=== PATIENT | male | born 1985 | race Caucasian/White ===

== ENCOUNTER 2016-11-24 22:09 | Emergency (ER) | payer OTHER ==
[~2016-11-24 22:09] MED LIST: BACT800T5 PO; BACTOIN EACH NARE; HIBI4LIQ TOPICAL; RIFA300C2 PO
[2016-11-24 22:19] VITALS: BP 138/97; PULSE 100; RESP 18; TEMP 98.1; O2SAT 100
[2016-11-24] MEDS ORDERED: BACT800T5 PO (22:42)
[2016-11-24] MEDS ORDERED: CLOT1CRE8 TOPICAL (22:53)
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
== END 2016-11-24 23:02 | disposition home or self-care (01) ==
LOC: PHED 22:09 → PHEFT 23:02
DX: M95.11 Cauliflower ear, right ear (principal); B36.9 Superficial mycosis, unspecified; H62.42 Otitis externa in other diseases classified elsewhere, left ear; F17.200 Nicotine dependence, unspecified, uncomplicated; Z86.14 Personal history of Methicillin resistant Staphylococcus aureus infection; T54.91XA Toxic effect of unspecified corrosive substance, accidental (unintentional), initial encounter; Y92.9 Unspecified place or not applicable
CPT/HCPCS: 10160; 87070; 87205

== ENCOUNTER 2016-11-29 20:02 | Emergency (ER) | payer SELFPAY ==
[~2016-11-29] VITALS: Ht 185.4 cm; Wt 80.0 kg
[~2016-11-29 20:02] MED LIST changes: -BACTOIN EACH NARE; +CLOT1CRE8 TOPICAL; -HIBI4LIQ TOPICAL; -RIFA300C2 PO
[2016-11-29 20:05] VITALS: BP 134/82; PULSE 90; RESP 16; TEMP 97.6; O2SAT 100
[2016-11-29] MEDS ORDERED: HYDR-3533 PO (22:40)
--- NOTE | 2016-11-29 22:41 | PD ---
HPI Chief Complaint: ENT Complaint Time Seen by Provider: 22:15 Travel History International Travel<30 days: No Contact w/Intl Traveler<30days: No Traveled to known affect area: No History of Present Illness HPI Patient is a 30-year-old male presenting to emergency for evaluation of right ear swelling. She was seen and evaluated 5 days ago, and needle aspiration was performed and he was placed on antibiotics. He reports compliance with the antibiotics. He reports increased swelling over the last 24 hours. He denies any injury or trauma to the right ear however he does work with trees. Patient denies any fevers, chills, nausea, vomiting. He states that he was dizzy today while walking denies any chest pain or shortness of breath. PFSH Past Medical History Arthritis: No Asthma: No Heart Rhythm Problems: No Cancer: No Cardiovascular Problems: Yes High Cholesterol: No Chest Pain: No Congestive Heart Failure: No COPD: No Cerebrovascular Accident: No Diminished Hearing: No Endocrine: No Genitourinary: No Immune Disorder: No Neurologic: No Psychiatric: No Reproductive: No Respiratory: No Integumentary: Yes (MRSA , FOLICULITIS ) Immunizations Current: No Migraines: No Seizures: No Sleep Apnea: No Past Surgical History Abdominal Surgery: No Cardiac Surgery: No Ear Surgery: No Endocrine Surgery: No Eye Surgery: No Genitourinary Surgery: No Gynecologic Surgery: No Oral Surgery: Yes (FX ARM) Thoracic Surgery: No Tonsillectomy: Yes Social History Alcohol Use: No Tobacco Use: Yes (vapor smokes, 1-2 cig per day ) Substance Use: No Allergies-Medications (Allergen,Severity, Reaction): Coded Allergies: Bee Sting (Verified Allergy, Intermediate, 11/29/16) *MDRO Multi-Drug Resistant Organism (Verified Adverse Reaction, Unknown, ) MRSA (lip-04/17/16) Reported Meds & Prescriptions Reported Meds & Active Scripts Active Lortab (Hydrocodone-Acetaminophen) 5-325 Mg Tab 1 Tab PO Q6H PRN Clotrimazole AF Topical (Clotrimazole) 1% Cream 1 Applic TOPICAL BID Bactrim DS (Sulfamethoxazole-Trimethoprim) 800-160 Mg Tab 1 Tab PO BID Review of Systems Except as stated in HPI: all other systems reviewed are Neg Skin: Positive Lumps, Positive Change in Pigmentation Physical Exam Narrative GENERAL: Well-nourished, well-developed patient. SKIN: Focused skin assessment warm/dry. HEAD: Normocephalic. EYES: No scleral icterus. No injection or drainage. EARS: Left pinnae and external canals appear within normal limits. Bilateral tympanic membranes without erythema, dullness or perforation. Right pinnae is significantly edematous and mildly erythematous, fluctuant, tender. NECK: Supple, trachea midline. No JVD or lymphadenopathy. CARDIOVASCULAR: Regular rate and rhythm without murmurs, gallops, or rubs. RESPIRATORY: Breath sounds equal bilaterally. No accessory muscle use. GASTROINTESTINAL: Abdomen soft, non-tender, nondistended. MUSCULOSKELETAL: No cyanosis, or edema. BACK: Nontender without obvious deformity. No CVA tenderness. Data Data Last Documented VS Vital Signs Date Time Temp Pulse Resp B/P Pulse Ox O2 Delivery O2 Flow Rate FiO2 11/29/16 20:05 97.6 90 16 134/82 100 Room Air MDM Medical Decision Making Medical Screen Exam Complete: Yes Emergency Medical Condition: Yes Interpretation(s) Vital Signs Date Time Temp Pulse Resp B/P Pulse Ox O2 Delivery O2 Flow Rate FiO2 11/29/16 20:05 97.6 90 16 134/82 100 Room Air Differential Diagnosis Traumatic hematoma versus cauliflower ear versus abscess versus cellulitis versus other Narrative Course Patient is a 30-year-old male presenting for reevaluation to right ear pinna edema. Please see procedure report for I&D. Bolster dressing was applied by my attending physician. Mother was educated on how to apply dressing should it come off. They were advised to leave dressing on for 5 days. Patient will continue antibiotics as previously prescribed. He is encouraged follow-up with his primary care provider. He was advised to return to emergency department for any new or worsening symptoms. Patient mother verbalized understanding of these instructions. Patient is stable for discharge. Procedures Procedure Narrative After the risks and benefits were discussed the following procedure was performed: INCISION AND DRAINAGE OF ABSCESS: The area was prepped and was sterilely draped. A subcutaneous wheal of 1 % Xylocaine with a total number 1 mL was used to anesthetize the area. The area was properly anesthetized. A number 11 scalpel was used to make a 0.5 -cm incision across the area of the abscess. Cultures were obtained. The abscess was drained an irrigated with normal saline. Sterile bolster dressing applied. Patient advised to have packing removed in two days. Diagnosis Primary Impression: Cauliflower ear, right ear Referrals: Primary Care Physician 3 days Patient Instructions: General Instructions Departure Forms: Tests/Procedures, Work Release Enter return to work date: Dec 04, 2016 Additional Instructions: Keep dressing on ear for 5 days Continue previously prescribed antibiotics Follow-up with your primary doctor in 2-3 days Return to emergency department for any new or worsening symptoms Drive or operate machinery while taking narcotic pain medication Med/Other Pt SpecificInfo: Prescription(s) given Scripts Hydrocodone-Acetaminophen (Lortab)5-325 Mg Tab1 Tab PO Q6H PRN (PAIN) #10 TAB Ref 0 Prov:Lalo Carlson MD 11/29/16 Disposition: 01 DISCHARGE HOME Condition: Stable Valerie Powell Nov 29, 2016 22:40
== END 2016-11-29 22:52 | disposition home or self-care (01) ==
LOC: NEPD 20:02
DX: M95.11 Cauliflower ear, right ear (principal); H60.01 Abscess of right external ear; Z72.0 Tobacco use; Z86.79 Personal history of other diseases of the circulatory system; Z87.2 Personal history of diseases of the skin and subcutaneous tissue; Z86.14 Personal history of Methicillin resistant Staphylococcus aureus infection
CPT/HCPCS: 10061

== ENCOUNTER 2017-07-31 10:52 | Inpatient (IN) | payer OTHER ==
[~2017-07-31] VITALS: Ht 188 cm; Wt 77.9 kg
[~2017-07-31 10:52] MED LIST changes: +HYDR-3533 PO
[2017-07-31 10:55] VITALS: BP 134/76; PULSE 79; RESP 18; TEMP 98.2; O2SAT 99
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
[2017-07-31 11:35] LABS: AUTOMATED NEUTROPHIL # 7.3 TH/MM3 (1.8-7.7); BASOPHIL % 0.4 % (0.0-2.0); EOSINOPHIL # 0.2 TH/MM3 (0-0.4); EOSINOPHIL % 2.3 % (0.0-4.0); HEMATOCRIT 43.4 % (39.0-51.0); HEMOGLOBIN 15.1 GM/DL (13.0-17.0); LYMPH % 17.2 % (9.0-44.0); LYMPHOCYTE # 1.7 TH/MM3 (1.0-4.8); MEAN CORPUSCULAR HEMOGLOBIN 28.1 PG (27.0-34.0); MEAN CORPUSCULAR HGB CONC 34.7 % (32.0-36.0); MEAN PLATELET VOLUME 8.7 FL (7.0-11.0); MONOCYTE # 0.8 TH/MM3 (0-0.9); NEUT % 72.1 % (16.0-70.0); PLATELET COUNT 238 TH/MM3 (150-450); RED BLOOD COUNT 5.36 MIL/MM3 (4.50-5.90); RED CELL DISTRIBUTION WIDTH 14.6 % (11.6-17.2); WHITE BLOOD COUNT 10.2 TH/MM3 (4.0-11.0)
[2017-07-31 11:49] LABS: BICARBONATE 28.5 MEQ/L (21.0-32.0); BLOOD UREA NITROGEN 17 MG/DL (7-18); CALCIUM 9.7 MG/DL (8.5-10.1); CHLORIDE 105 MEQ/L (98-107); CREATININE 1.03 MG/DL (0.60-1.30); GLOMERULAR FILTRATION RATE 85 ML/MIN (>89); GLUCOSE,RANDOM 93 MG/DL (74-106); SODIUM (NA) 138 MEQ/L (136-145)
[2017-07-31 15:58] VITALS: BP 109/59; PULSE 64; RESP 16; TEMP 97.5; O2SAT 100
[2017-07-31 17:20] VITALS: BP 125/68; PULSE 64; RESP 20
[2017-07-31 22:53] VITALS: BP 113/64; PULSE 60; RESP 18; TEMP 98.6; O2SAT 95
[2017-08-01 03:11] VITALS: BP 121/67; PULSE 63; RESP 18; TEMP 99; O2SAT 100
[2017-08-01 06:56] VITALS: BP 97/56; PULSE 68; RESP 16; TEMP 98.3; O2SAT 100
[2017-08-01] MEDS ORDERED: HALOPERIDOL LACTATE 5 MG/ML AMP IM PRN (07:15)
[2017-08-01] MEDS ORDERED: diphenhydrAMINE HCL 50 MG/ML VIAL IM PRN (07:15)
[2017-08-01] MEDS ORDERED: MAGNESIUM HYDROXIDE SUSP 30 ML CUP PO PRN (07:15)
[2017-08-01] MEDS ORDERED: LORazepam 2 MG/ML VIAL IM PRN (07:15)
[2017-08-01] MEDS ORDERED: ALUMINUM/MAGNESIUM/SIMETH 30 ML CUP PO PRN (07:15)
[2017-08-01] MEDS ORDERED: LORazepam 1 MG TAB PO PRN (07:15)
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
[2017-08-01] MEDS: HALOPERIDOL 5 MG TAB PO SCH ×2 (09:00→20:53)
[2017-08-01 14:00] VITALS: BP 136/52; PULSE 55; RESP 18; TEMP 98.3; O2SAT 98
[2017-08-01 16:30] VITALS: BP 108/62; PULSE 57; RESP 17; TEMP 98.2; O2SAT 99
[2017-08-01] MEDS: diphenhydrAMINE HCL 50 MG CAP PO PRN (21:15)
[2017-08-02 06:16] VITALS: BP 111/61; PULSE 92; RESP 16; TEMP 98.6; O2SAT 97
[2017-08-02 07:38] LABS: ALBUMIN 3.4 GM/DL (3.4-5.0); ALT (GPT) 26 U/L (12-78); AST (GOT) 18 U/L (15-37); BICARBONATE 27.1 MEQ/L (21.0-32.0); BLOOD UREA NITROGEN 10 MG/DL (7-18); CALCIUM 9.1 MG/DL (8.5-10.1); CHLORIDE 104 MEQ/L (98-107); CHOLESTEROL 149 MG/DL (120-200); CREATININE 0.73 MG/DL (0.60-1.30); GLOMERULAR FILTRATION RATE 127 ML/MIN (>89); GLUCOSE,RANDOM 87 MG/DL (74-106); SODIUM (NA) 136 MEQ/L (136-145)
[2017-08-02 07:41] LABS: ALKALINE PHOSPHATASE 76 U/L (45-117); CHOLESTEROL/ HDL RATIO 2.21 RATIO; HDL CHOLESTEROL 67.4 MG/DL (40.0-60.0); LDL CHOLESTEROL 69 MG/DL (0-99); TOTAL BILIRUBIN ADULT 0.2 MG/DL (0.2-1.0); TOTAL PROTEIN 7.1 GM/DL (6.4-8.2); TRIGLYCERIDES 62 MG/DL (42-150)
[2017-08-02] MEDS: HALOPERIDOL 5 MG TAB PO SCH ×2 (09:00→20:44)
[2017-08-02] MEDS ORDERED: PNEUMOCOCCAL POLYVALENT INJ 25 MCG/0.5 ML SYR IM ONE (10:00)
[2017-08-02] MEDS ORDERED: INFLUENZA VIRUS VACCINE (QUADRIVALENT) 0.5 ML SYR IM ONE (10:00)
--- NOTE | 2017-08-02 12:14 | HHI.PYPN ---
Subjective Chief Complaint: Psychosis Remarks Patient seen and examined with nurse. Chart reviewed. Case discussed with nursing staff. Nurse has noted pustular lesions on neck and back, requesting hospitalist consult. On my examination today, patient remains delusional regarding vigilantes being after him. He continues to believe that his sister is in league with these vigilantes. He does not believe they are encroaching on the inpatient unit. He denies any SI or HI but remains unreliable to contract for safety. He remains internally stimulated. Denies any side effects from medications besides some mild tiredness. No physical complaints. Review of Systems ROS Limitations: Psychotic, Poor Historian Except as stated in HPI: all other systems reviewed are Neg Mental Status Examination Appearance: Disheveled Consciousness: Alert Orientation: Person, Place (at least) Motor Activity: Other (no hand tremor, no cogwheeling, no dystonia, no other motor abnormalities noted.) Speech: Unremarkable Language: Adequate Fund of Knowledge: Adequate Attention and Concentration: Adequate Memory: Unremarkable Mood: Irritable, Other (dysphoric) Affect: Other (restricted) Thought Process & Associations: Linear (within delusional system) Thought Content: Delusional Hallucination Type: Other (internally stimulated) Delusion Type: Paranoid Suicidal Ideation: No Suicidal Plan: No Suicidal Intention: No Homicidal Ideation: No (unreliable to contract for safety) Homicidal Plan: No Homicidal Intention: No Insight: Poor Judgment: Poor Mental Status Exam Remarks No signs of withdrawal noted. I do note several pustular lesions on lateral aspects of neck and on back. Results Labs Test 08/02/17 07:00 Blood Urea Nitrogen 10 MG/DL Creatinine 0.73 MG/DL Random Glucose 87 MG/DL Total Protein 7.1 GM/DL Albumin 3.4 GM/DL Calcium Level 9.1 MG/DL Alkaline Phosphatase 76 U/L Aspartate Amino Transf (AST/SGOT) 18 U/L Alanine Aminotransferase (ALT/SGPT) 26 U/L Total Bilirubin 0.2 MG/DL Sodium Level 136 MEQ/L Potassium Level 4.3 MEQ/L Chloride Level 104 MEQ/L Carbon Dioxide Level 27.1 MEQ/L Anion Gap 5 MEQ/L Estimat Glomerular Filtration Rate 127 ML/MIN Triglycerides Level 62 MG/DL Cholesterol Level 149 MG/DL LDL Cholesterol 69 MG/DL HDL Cholesterol 67.4 MG/DL Cholesterol/HDL Ratio 2.21 RATIO Labs reviewed. Vitals/IOs Vital Signs Date Time Temp Pulse Resp B/P (MAP) Pulse Ox O2 Delivery O2 Flow Rate FiO2 08/02/17 06:16 98.6 92 16 111/61 (78) 97 08/01/17 06:56 Room Air Assessment & Plan Problem List: (1) Other psychotic disorder not due to a substance or known physiological condition ICD Codes: F28 - Other psychotic disorder not due to a substance or known physiological condition (2) Polysubstance abuse ICD Codes: F19.10 - Other psychoactive substance abuse, uncomplicated Assessment & Plan Titrate Haldol to 7.5 mg twice daily with IM backup to target psychotic symptoms. Continue to monitor on the high acuity unit. Hospitalist consultation. Continue other medications and care as ordered. Justification for Cont. Inpt. Impairment in reality construction. Medication changes. Risk for decompensation in less restrictive environment. Discharge Planning Pending psychiatric stabilization Request HC Surrog/Guard Advoc?: Yes Anthony Diaz MD Aug 02, 2017 12:14
--- NOTE | 2017-08-02 12:24 | EKG ---
Date Performed: 08/01/2017 Time Performed: 12:57:15 PTAGE: 31 years EKG: Sinus rhythm BORDERLINE RIGHT AXIS DEVIATION INCOMPLETE RIGHT BUNDLE BRANCH BLOCK EARLY REPOLARIZATION TALL T-WAV ES, SUGGESTS HYPERKALEMIA ABNORMAL ECG NO PREVIOUS TRACING 08/01/2017 1257 DOCTOR: Siddharth Morris Interpretating Date/Time 08/02/2017 12:21:28
[2017-08-02] MEDS ORDERED: PILL SPLITTER OTHER PRN (12:30)
[2017-08-02] MEDS ORDERED: HALOPERIDOL LACTATE 5 MG/ML AMP IM PRN (13:15)
--- NOTE | 2017-08-02 13:20 | PD.CONS ---
HPI Service [facility] Hospitalists Consult Requested By Primary Care Physician No Primary Care Physician Diagnoses: History of Present Illness History from patient, review of medical records, and psychiatry note/ER notes. Patient is admitted to psychiatry inpatient service. Medical team was consulted for "huge pustular lesions on neck and back" Patient at the time of my exam is awake and alert. Patient denies any recent fevers/nausea/vomiting/diarrhea/urinary burning or pain on urination. Denies any hematemesis/hematochezia/melena/hematuria. Patient has noted multiple skin lesions on his face, neck, and lower back. He reports that these lesions have been there for at least a month if not longer. He reports of prior history of MRSA. He denies any shaving or bites. Denies being diabetic. Reports prior history of acne as a teenager but never had lesions on his back or neck area. Denies any sensitivity to soap or bed sheets. Denies any fever. Patient is noted to have some mild whitish discharge from these lesions but he stated he did not have any lani pustular discharge previously. On review of medical records, patient has had prior history of facial abscesses with MRSA He does not follow up with any PCP. Does not take any prophylactic medications for disseminated MRSA. Past Family Social History Allergies: Coded Allergies: bee venom protein (honey bee) (Unverified Allergy, Intermediate, 01/19/17) *MDRO Multi-Drug Resistant Organism (Verified Adverse Reaction, Unknown, ) MRSA (lip-04/17/16) Physical Exam Vital Signs Vital Signs Date Time Temp Pulse Resp B/P (MAP) Pulse Ox O2 Delivery O2 Flow Rate FiO2 08/02/17 06:16 98.6 92 16 111/61 (78) 97 08/01/17 16:30 98.2 57 17 108/62 (77) 99 08/01/17 14:00 98.3 55 18 136/52 (80) 98 Physical Exam GENERAL: This is a well-nourished, well-developed patient, in no apparent distress. SKIN: No rashes, ecchymoses or lesions. Cool and dry. HEAD: Atraumatic. Normocephalic. No temporal or scalp tenderness. EYES: Pupils equal round and reactive. Extraocular motions intact. No scleral icterus. No injection or drainage. ENT: Nose without bleeding, purulent drainage or septal hematoma. Throat without erythema, tonsillar hypertrophy or exudate. Uvula midline. Airway patent. NECK: Trachea midline. No JVD or lymphadenopathy. Supple, nontender, no meningeal signs. CARDIOVASCULAR: Regular rate and rhythm without murmurs, gallops, or rubs. RESPIRATORY: Clear to auscultation. Breath sounds equal bilaterally. No wheezes , rales, or rhonchi. GASTROINTESTINAL: Abdomen soft, non-tender, nondistended. No hepato-splenomegaly , or palpable masses. No guarding. MUSCULOSKELETAL: Extremities without clubbing, cyanosis, or edema. No joint tenderness, effusion, or edema noted. No calf tenderness. Negative Homans sign bilaterally. NEUROLOGICAL: Awake and alert. Cranial nerves II through XII intact. Motor and sensory grossly within normal limits. Five out of 5 muscle strength in all muscle groups. Normal speech. Laboratory Laboratory Tests Test 08/02/17 07:00 Blood Urea Nitrogen 10 Creatinine 0.73 Random Glucose 87 Total Protein 7.1 Albumin 3.4 Calcium Level 9.1 Alkaline Phosphatase 76 Aspartate Amino Transf (AST/SGOT) 18 Alanine Aminotransferase (ALT/SGPT) 26 Total Bilirubin 0.2 Sodium Level 136 Potassium Level 4.3 Chloride Level 104 Carbon Dioxide Level 27.1 Anion Gap 5 Estimat Glomerular Filtration Rate 127 Triglycerides Level 62 Cholesterol Level 149 LDL Cholesterol 69 HDL Cholesterol 67.4 Cholesterol/HDL Ratio 2.21 Result Diagram: 07/31/17 1115 08/02/17 0700 Fadi Isaacs MD Aug 02, 2017 13:20
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
[2017-08-02] MEDS ORDERED: DOXYCYCLINE HYCLATE 100 MG TAB PO ONE (14:00)
[2017-08-02] MEDS ORDERED: MUPIROCIN 2% OINT 1 APPLIC/GM SYR EACH NARE ONE (14:00)
[2017-08-02] MEDS ORDERED: CHLORHEXIDINE GLUCONATE 4% SOLN 120 ML BTL TOPICAL ONE (15:00)
[2017-08-02 16:17] LABS: HEMOGLOBIN A1C 5.9 % (4.3-6.0)
[2017-08-02 17:45] VITALS: BP 117/66; PULSE 70; RESP 16; TEMP 97.9; O2SAT 98
[2017-08-02] MEDS: diphenhydrAMINE HCL 50 MG CAP PO PRN (18:09)
[2017-08-02] MEDS: MUPIROCIN 2% OINT 1 APPLIC/GM SYR EACH NARE SCH (20:44)
[2017-08-02] MEDS: DOXYCYCLINE HYCLATE 100 MG TAB PO SCH (20:45)
[2017-08-03 06:06] VITALS: BP 116/73; PULSE 52; RESP 18; TEMP 98.8; O2SAT 18
[2017-08-03 06:07] VITALS: BP 116/73; PULSE 52; RESP 18; TEMP 97.8; O2SAT 98
[2017-08-03] MEDS: MUPIROCIN 2% OINT 1 APPLIC/GM SYR EACH NARE SCH ×2 (09:00→20:58)
[2017-08-03] MEDS: HALOPERIDOL 5 MG TAB PO SCH ×2 (09:00→21:00)
--- NOTE | 2017-08-03 09:32 | HHI.PYPN ---
Subjective Chief Complaint: Psychosis Remarks Patient seen and examined with nurse. Chart reviewed. Case discussed with nursing staff who reports patient remains quite delusional. Patient had some tongue tremor overnight and was given Benadryl. Case discussed in treatment team. On my examination today, the patient is mildly dysphoric. Continues to believe that he is being pursued by vigilantes and tells me "I have to move" i.e. to a different house. Denies SI or HI but seems unreliable to contract for safety. Denies side effects from medications. No physical complaints. Review of Systems ROS Limitations: Psychotic, Poor Historian Except as stated in HPI: all other systems reviewed are Neg Mental Status Examination Appearance: Disheveled Consciousness: Alert Orientation: Person, Place Motor Activity: Other (no hand tremor, no dystonias, no dyskinesias. The patient does have an ongoing tongue tremor without evidence of oral/lingual dyskinesia. No airway compromise and patient is breathing easily.) Speech: Unremarkable Language: Adequate Fund of Knowledge: Adequate Attention and Concentration: Adequate Memory: Unremarkable Mood: Other (dysphoric) Affect: Other (restricted) Thought Process & Associations: Linear (within delusional system) Thought Content: Delusional Hallucination Type: Other (internally stimulated) Delusion Type: Paranoid Suicidal Ideation: No Suicidal Plan: No Suicidal Intention: No Homicidal Ideation: No Homicidal Plan: No Homicidal Intention: No Insight: Poor Judgment: Poor Results Labs Labs reviewed. Vitals/IOs Vital Signs Date Time Temp Pulse Resp B/P (MAP) Pulse Ox O2 Delivery O2 Flow Rate FiO2 08/03/17 06:07 97.8 52 18 116/73 (87) 98 08/01/17 06:56 Room Air Assessment & Plan Problem List: (1) Other psychotic disorder not due to a substance or known physiological condition ICD Codes: F28 - Other psychotic disorder not due to a substance or known physiological condition (2) Polysubstance abuse ICD Codes: F19.10 - Other psychoactive substance abuse, uncomplicated Assessment & Plan Continue Haldol as ordered with plans for further titration to effect. Add Cogentin 1 mg twice daily for side effect management. Hospitalist input noted and appreciated. Continue to monitor on the inpatient unit. Continue other medications and care as ordered. Justification for Cont. Inpt. Impairment in reality construction. Medication changes. Risk for decompensation in less restrictive environment. Discharge Planning Pending psychiatric stabilization. Request HC Surrog/Guard Advoc?: Yes Anthony Diaz MD Aug 03, 2017 09:32
[2017-08-03] MEDS: BENZTROPINE MESYLATE 1 MG TAB PO SCH ×2 (10:56→20:58)
[2017-08-03] MEDS: DOXYCYCLINE HYCLATE 100 MG TAB PO SCH ×2 (10:56→21:00)
--- NOTE | 2017-08-03 15:36 | HHI.PR ---
Subjective Remarks Follow up on patient with rash, hx of MRSA. Patient seen and examined. Patient denies any complaints. He does not know if the rash is any better. He denies any associated itching or pain. He denies any fever or chills. He has been refusing the Mupirocin. Discussed with DAIANA Rucker, no acute issues noted. Objective Vitals Vital Signs Date Time Temp Pulse Resp B/P (MAP) Pulse Ox O2 Delivery O2 Flow Rate FiO2 08/03/17 06:07 97.8 52 18 116/73 (87) 98 08/03/17 06:06 98.8 52 18 116/73 (87) 18 08/02/17 17:45 97.9 70 16 117/66 (83) 98 Result Diagram: 07/31/17 1115 08/02/17 0700 Objective Remarks GENERAL: Well-nourished, well-developed young male patient in [facility]. Sleeping in bed but easily awakens to voice. SKIN: Warm and dry. Multiple scattered lesions on face, neck, chest and back. No e/o infection. No active drainage. HEAD: Normocephalic. Atraumatic. EYES: EOMI. No scleral icterus. No injection or drainage. ENT: No nasal bleeding or discharge. Mucous membranes pink and moist. NECK: Supple. Trachea midline. CARDIOVASCULAR: Regular rate and rhythm. S1, S2 noted. No murmur appreciated. RESPIRATORY: Nonlabored. Clear to auscultation. Breath sounds equal bilaterally. GASTROINTESTINAL: Abdomen soft, non-tender, nondistended. Normoactive bowel sounds x4. MUSCULOSKELETAL: No obvious deformities. Extremities without clubbing, cyanosis , or edema. NEUROLOGICAL: Awake and alert. Motor and sensory function grossly intact. Normal speech. PSYCHIATRIC: Minimal verbalization. Flat affect. Medications and IVs Current Medications Medications (Trade) Dose Ordered Sig/Kasia Route Start Time Stop Time Status Last Admin (Ativan) 1 mg Q6H PRN PO 08/01/17 07:15 (Ativan Inj) 1 mg Q6H PRN IM 08/01/17 07:15 (Benadryl) 50 mg Q6H PRN PO 08/01/17 07:15 08/02/17 18:09 (Benadryl Inj) 50 mg Q6H PRN IM 2/25/18 07:15 (Tylenol) 650 mg Q4H PRN PO 08/01/17 07:15 (Milk Of Magnesia Liq) 30 ml DAILY PRN PO 08/01/17 07:15 (Mag-Al Plus Susp Liq) 30 ml Q6H PRN PO 08/01/17 07:15 (Habitrol 21 Mg Patch.24 Hr) 1 patch DAILY PRN T-DERMAL 08/01/17 07:15 (Haldol) 7.5 mg BID PO 08/02/17 21:00 08/03/17 09:00 (Haldol Inj) 7.5 mg Q6H PRN IM 08/02/17 13:15 (Pill Splitter) 1 ea UNSCH PRN OTHER 08/02/17 12:30 (Vibratab) 100 mg Q12HR PO 08/02/17 21:00 08/03/17 10:56 (Bactroban Nasal 2% Oint) 1 applic BID EACH NARE 08/02/17 21:00 08/02/17 20:44 (Cogentin) 1 mg Q12HR PO 08/03/17 10:00 08/03/17 10:56 A/P Assessment and Plan 31yo with a history of psychosis and substance use admitted under [place] act to inpatient psychiatry unit. Hospitalist service is consulted for rash/lesions on face, neck and back. Patient has history of MRSA. Psychosis, under [place] Act -Management per psychiatric team Rash, on face, neck, chest and back Hx of MRSA infection -place patient in contact isolation -Continue on doxycycline BID -MRSA screen ordered -Continue Bactroban twice a day to the anterior nares -Hibiclens baths daily Polysubstance use -Urine drug screen positive for amphetamines and cannabis -encouraged cessation DVT prophylaxis -Patient is ambulatory Kimberlee Wilhelm Aug 03, 2017 15:36
[2017-08-03] MEDS: CHLORHEXIDINE GLUCONATE 4% SOLN 120 ML BTL TOPICAL SCH (15:45)
[2017-08-03] MEDS: diphenhydrAMINE HCL 50 MG CAP PO PRN (16:49)
[2017-08-03 18:44] VITALS: BP 118/61; PULSE 67; RESP 18; TEMP 98.4; O2SAT 99
[2017-08-04 06:03] VITALS: BP 117/66; PULSE 54; RESP 18; TEMP 96.9; O2SAT 98
--- NOTE | 2017-08-04 07:22 | HHI.PYPN ---
Subjective Chief Complaint: Psychosis Remarks Patient seen and examined with nurse. Chart reviewed. Case discussed with RN. I was called yesterday evening by RN as patient was reportedly having increased oral/lingual and extremity motor side effects from Haldol. Benadryl was administered IM. Per nursing report, patient struggling somewhat to eat/ swallow but breathing easily. I ordered Haldol be held and for patient to be NPO while having oral motor symptoms. The patient was subsequently transferred to [facility], per chargeback analyst not because of motor symptoms but because he is on contact precautions for possible MRSA. No behavioral issues overnight. On my examination this morning, the patient is calm and cooperative. He denies any SI or HI. Denies any AVH. He remains concerned about vigilantes but does not worry that they are coming into the hospital. No side effects from medications currently. No physical complaints. I did endeavor to call mother Tata to discuss a different antipsychotic option for patient, and I left a generic VM requesting call back ~0720. Tried again to reach mother @ ~0200. Daughter (pt's sister) answers and relates that mother will be at work until the evening. Review of Systems ROS Limitations: Psychotic, Poor Historian Except as stated in HPI: all other systems reviewed are Neg Mental Status Examination Appearance: Disheveled Consciousness: Alert Orientation: x4 Motor Activity: Other (No UE or LE stiffness or tremor or cogwheeling. Possibly some ongoing tongue tremor, but this is reduced. No hypomimia. No dystonias or dyskinesias noted. No drooling. No respiratory compromise.) Speech: Unremarkable Language: Adequate Fund of Knowledge: Adequate Attention and Concentration: Adequate Memory: Unremarkable Mood: Other (remains a little dysphoric) Affect: Blunt Thought Process & Associations: Linear (within delusional system) Thought Content: Delusional Hallucination Type: None Delusion Type: Paranoid Suicidal Ideation: No Suicidal Plan: No Suicidal Intention: No Homicidal Ideation: No Homicidal Plan: No Homicidal Intention: No Insight: Poor Judgment: Poor Results Labs Date/Time Source Procedure Growth Status 08/03/17 22:10 Nasopharyngeal MRSA Surveillance Culture Pending Received Labs reviewed. Vitals/IOs Vital Signs Date Time Temp Pulse Resp B/P (MAP) Pulse Ox O2 Delivery O2 Flow Rate FiO2 08/04/17 06:03 96.9 54 18 117/66 (83) 98 2/25/18 06:56 Room Air Assessment & Plan Problem List: (1) Other psychotic disorder not due to a substance or known physiological condition ICD Codes: F28 - Other psychotic disorder not due to a substance or known physiological condition (2) Polysubstance abuse ICD Codes: F19.10 - Other psychoactive substance abuse, uncomplicated Assessment & Plan D/c Haldol. NPO this morning pending swallow eval. Continue Cogentin once cleared by for meds. Plan to select a different antipsychotic. Patient was adherent with PO Haldol and so Abilify might make a good option. Await consent from [facility]. Continue to monitor on med psych due to isolation requirements. Hospitalist input noted and appreciated. Continue other meds and care as ordered. Justification for Cont. Inpt. Complicating conditions. Impairment in reality construction. Medication changes planned. High risk for decompensation in less restrictive environment. Discharge Planning Pending psychiatric stabilization. [place] tomorrow. Request HC Surrog/Guard Advoc?: Yes Anthony Diaz MD Aug 04, 2017 07:22
[2017-08-04] MEDS: CHLORHEXIDINE GLUCONATE 4% SOLN 120 ML BTL TOPICAL SCH (09:00)
[2017-08-04] MEDS: BENZTROPINE MESYLATE 1 MG TAB PO SCH ×2 (11:32→21:45)
--- NOTE | 2017-08-04 12:45 | HHI.PR ---
Subjective Remarks Follow up on patient with rash, hx of MRSA. Patient seen and examined. Patient 's only complaint this morning is hungry. Apparently he had some difficulty swallowing yesterday but passed his speech therapy swallow evaluation. Patient felt it was likely related to anxiety. He is requesting a tray. He denies any fever or chills. Denies any cough or shortness of breath. Denies any hematuria , dysuria, diarrhea or constipation. He is tearful and states he would like to be home with his family. Objective Vitals Vital Signs Date Time Temp Pulse Resp B/P (MAP) Pulse Ox O2 Delivery O2 Flow Rate FiO2 08/04/17 06:03 96.9 54 18 117/66 (83) 98 08/03/17 18:44 98.4 67 18 118/61 (80) 99 I/O 08/03/17 08/03/17 08/03/17 08/04/17 08/04/17 08/04/17 07:00 15:00 23:00 07:00 15:00 23:00 Intake Total 480 ml Balance 480 ml Intake Oral 480 ml Result Diagram: 07/31/17 1115 08/02/17 0700 Objective Remarks GENERAL: Well-nourished, well-developed young male patient in [facility]. Lying in bed. Awake and alert. Tearful. SKIN: Warm and dry. Multiple scattered lesions on face, neck, chest and back. No e/o infection. No active drainage. HEAD: Normocephalic. Atraumatic. EYES: EOMI. No scleral icterus. No injection or drainage. ENT: No nasal bleeding or discharge. Mucous membranes pink and moist. NECK: Supple. Trachea midline. CARDIOVASCULAR: Regular rate and rhythm. S1, S2 noted. No murmur appreciated. RESPIRATORY: Nonlabored. Clear to auscultation. Breath sounds equal bilaterally. GASTROINTESTINAL: Abdomen soft, non-tender, nondistended. Normoactive bowel sounds x4. MUSCULOSKELETAL: No obvious deformities. Extremities without clubbing, cyanosis , or edema. NEUROLOGICAL: Awake and alert. Motor and sensory function grossly intact. Normal speech. PSYCHIATRIC: Depressed mood. Tearful. Medications and IVs Current Medications Medications (Trade) Dose Ordered Sig/Kasia Route Start Time Stop Time Status Last Admin (Ativan) 1 mg Q6H PRN PO 08/01/17 07:15 (Ativan Inj) 1 mg Q6H PRN IM 08/01/17 07:15 (Benadryl) 50 mg Q6H PRN PO 08/01/17 07:15 08/03/17 16:49 (Benadryl Inj) 50 mg Q6H PRN IM 08/01/17 07:15 08/03/17 17:05 (Tylenol) 650 mg Q4H PRN PO 08/01/17 07:15 (Milk Of Magnesia Liq) 30 ml DAILY PRN PO 08/01/17 07:15 (Mag-Al Plus Susp Liq) 30 ml Q6H PRN PO 08/01/17 07:15 (Habitrol 21 Mg Patch.24 Hr) 1 patch DAILY PRN T-DERMAL 08/01/17 07:15 (Pill Splitter) 1 ea UNSCH PRN OTHER 08/02/17 12:30 (Vibratab) 100 mg Q12HR PO 08/02/17 21:00 08/03/17 21:00 (Bactroban Nasal 2% Oint) 1 applic BID EACH NARE 08/02/17 21:00 08/03/17 20:58 (Cogentin) 1 mg Q12HR PO 08/03/17 10:00 08/04/17 11:32 (Hibiclens 4% Top Soln) 1 applic DAILY TOPICAL 08/03/17 15:45 08/03/17 15:45 A/P Assessment and Plan 31yo with a history of psychosis and substance use admitted under [employer] act to inpatient psychiatry unit. Hospitalist service is consulted for rash/lesions on face, neck and back. Patient has history of MRSA. Psychosis, under [employer] Act -Management per psychiatric team Rash, on face, neck, chest and back Hx of MRSA infection requiring I&D -patient in contact isolation -Continue on doxycycline BID -MRSA screen pending -Continue Bactroban twice a day to the anterior nares x 5 days at the beginning of each month per ID note 05/21/16. Patient has been refusing Bactroban ointment. Discussed with patient utility of medication. Hopefully, he will be compliant. -Hibiclens baths daily Polysubstance use -Urine drug screen positive for amphetamines and cannabis -encouraged cessation DVT prophylaxis -Patient is ambulatory Kimberlee Wilhelm Aug 04, 2017 12:45
[2017-08-04 18:00] VITALS: BP 119/60; PULSE 59; RESP 17; TEMP 98.1; O2SAT 100
[2017-08-04] MEDS: DOXYCYCLINE HYCLATE 100 MG TAB PO SCH (21:44)
[2017-08-04] MEDS: MUPIROCIN 2% OINT 1 APPLIC/GM SYR EACH NARE SCH (21:44)
[2017-08-05 06:00] VITALS: BP 113/62; PULSE 64; RESP 18; TEMP 98.1; O2SAT 98
[2017-08-05] MEDS ORDERED: ARIPiprazole 10 MG TAB PO SCH (09:00)
[2017-08-05] MEDS: CHLORHEXIDINE GLUCONATE 4% SOLN 120 ML BTL TOPICAL SCH (09:00)
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
[2017-08-05] MEDS: DOXYCYCLINE HYCLATE 100 MG TAB PO SCH ×2 (10:58→21:00)
[2017-08-05] MEDS: MUPIROCIN 2% OINT 1 APPLIC/GM SYR EACH NARE SCH ×2 (10:58→21:00)
[2017-08-05] MEDS: BENZTROPINE MESYLATE 1 MG TAB PO SCH ×2 (10:58→21:00)
--- NOTE | 2017-08-05 12:03 | HHI.PYPN ---
Subjective Chief Complaint: Psychosis Remarks Patient seen and examined with nurse. Chart reviewed. Case discussed with nursing staff. Patient remains delusional per nursing staff. Patient remains on medical psychiatric unit as he is on contact precautions for MRSA. On my examination today, the patient does indeed remain quite paranoid regarding vigilantes. He continues to believe that his sister Nargis is involved with the vigilantes and notes that she is "bad news, a whole demonic source unto herself." He continues to believe that he needs to protect his mother, presumably from the vigilantes. He denies any SI or HI but seems distinctly unreliable to contract for safety. He is irritable. He is discharge focused. His insight into his mental illness is nil. He is tolerating the Abilify much better than the Haldol with no evident EPS. No physical complaints. Review of Systems ROS Limitations: Psychotic, Poor Historian Except as stated in HPI: all other systems reviewed are Neg Mental Status Examination Appearance: Disheveled Consciousness: Alert Orientation: x4 Motor Activity: Other (no motor abnormalities noted. No hand tremor, no dystonia, no dyskinesia, no oral/lingual motor abnormalities.) Speech: Unremarkable Language: Adequate Fund of Knowledge: Adequate Attention and Concentration: Adequate Memory: Unremarkable Mood: Anxious, Irritable Affect: Irritable, Anxious Thought Process & Associations: Linear (within delusional system) Thought Content: Delusional Hallucination Type: None Delusion Type: Paranoid Suicidal Ideation: No (unreliable to contract for safety) Suicidal Plan: No Suicidal Intention: No Homicidal Ideation: No (unreliable to contract for safety) Homicidal Plan: No Homicidal Intention: No Insight: Poor Judgment: Poor Results Labs Date/Time Source Procedure Growth Status 08/03/17 22:10 Nasopharyngeal MRSA Surveillance Culture - Final NO MRSA ISOLATED Complete Labs reviewed. Vitals/IOs Vital Signs Date Time Temp Pulse Resp B/P (MAP) Pulse Ox O2 Delivery O2 Flow Rate FiO2 08/05/17 06:00 98.1 64 18 113/62 (79) 98 Intake and Output 08/05/17 08/05/17 08/06/17 08:00 16:00 00:00 Intake Total 240 ml 600 ml Balance 240 ml 600 ml Assessment & Plan Problem List: (1) Schizophrenia, paranoid type ICD Codes: F20.0 - Paranoid schizophrenia (2) Polysubstance abuse ICD Codes: F19.10 - Other psychoactive substance abuse, uncomplicated Assessment & Plan Ongoing psychotic symptoms despite prolonged abstinence from substances on the inpatient unit is supportive of primary psychotic illness, and given the duration of symptoms the diagnosis appears to be schizophrenia, paranoid type. I have adjusted the provisional diagnosis accordingly. I have placed an order to titrate the patient's Abilify tomorrow to 15 mg and through the weekend to a target dose of 30 mg daily. To consider long-acting injectable Abilify if this agent proves efficacious for the patient's psychosis. I will continue the prophylactic Cogentin as the patient had significant EPS with Haldol. Hospitalist input noted and appreciated. The patient's case was presented to the [place] act court, and the patient was retained on the unit by the laboratory tech with mother to service guardian advocate. In addition, the laboratory tech has placed an order to have law enforcement confiscate all of patient's guns and knives, and the commercial attorney will communicate this order to the relevant law enforcement agency. >35 min spent with patient and in care coordination today. Justification for Cont. Inpt. Impairment in safety. Impairment in reality construction. Medication changes. High risk for decompensation in less restrictive setting. Discharge Planning Pending psychiatric stabilization. Request HC Surrog/Guard Advoc?: Yes Anthony Diaz MD Aug 05, 2017 12:03
[2017-08-05 18:42] VITALS: BP 124/69; PULSE 65; RESP 16; TEMP 97.7
[2017-08-06 06:00] VITALS: BP 124/69; PULSE 77; RESP 18; TEMP 97.8; O2SAT 98
[2017-08-06] MEDS: MUPIROCIN 2% OINT 1 APPLIC/GM SYR EACH NARE SCH ×2 (09:00→21:00)
[2017-08-06] MEDS ORDERED: ARIPiprazole 15 MG TAB PO SCH (09:00)
[2017-08-06] MEDS: CHLORHEXIDINE GLUCONATE 4% SOLN 120 ML BTL TOPICAL SCH (09:00)
[2017-08-06] MEDS: DOXYCYCLINE HYCLATE 100 MG TAB PO SCH ×2 (10:21→21:28)
[2017-08-06] MEDS: BENZTROPINE MESYLATE 1 MG TAB PO SCH ×2 (10:21→21:28)
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
[2017-08-06 17:58] VITALS: BP 122/68; PULSE 71; RESP 18; TEMP 97.9; O2SAT 97
[2017-08-06] MEDS: diphenhydrAMINE HCL 50 MG CAP PO PRN (21:28)
[2017-08-07 05:55] VITALS: BP 116/68; PULSE 56; RESP 18; TEMP 97.7; O2SAT 98
[2017-08-07] MEDS: MUPIROCIN 2% OINT 1 APPLIC/GM SYR EACH NARE SCH (09:00)
[2017-08-07] MEDS: BENZTROPINE MESYLATE 1 MG TAB PO SCH ×2 (09:51→20:31)
[2017-08-07] MEDS: DOXYCYCLINE HYCLATE 100 MG TAB PO SCH ×2 (09:52→20:31)
[2017-08-07] MEDS: CHLORHEXIDINE GLUCONATE 4% SOLN 120 ML BTL TOPICAL SCH (10:59)
--- NOTE | 2017-08-07 15:03 | HHI.PYPN ---
Subjective Chief Complaint: Psychosis Remarks The patient was seen today for psychiatric reevaluation. The patient is calm, cooperative and pleasant, but he continues to endorse that there are people in the back of his house that has been watching him, following him, and want to hurt him. The patient says that he has no intention to hurt anybody, he denies suicidal and homicidal ideation, at some point of the interview the patient becomes internally preoccupied and guarded, expressing that "they might know that I am here now, but I feel safe here". He has been compliant with his psychotropics, no significant side effects reported. Mental Status Examination Appearance: Disheveled Consciousness: Alert Orientation: x4 Motor Activity: Other (no motor abnormalities noted. No hand tremor, no dystonia, no dyskinesia, no oral/lingual motor abnormalities.) Speech: Unremarkable Language: Adequate Fund of Knowledge: Adequate Attention and Concentration: Adequate Memory: Unremarkable Mood: Anxious, Irritable Affect: Irritable, Anxious Thought Process & Associations: Goal directed (toward discharge) Thought Content: Delusional Hallucination Type: None Delusion Type: Paranoid Suicidal Ideation: No (unreliable to contract for safety) Suicidal Plan: No Suicidal Intention: No Homicidal Ideation: No (unreliable to contract for safety) Homicidal Plan: No Homicidal Intention: No Insight: Poor Judgment: Poor Results Labs Date/Time Source Procedure Growth Status 08/03/17 22:10 Nasopharyngeal MRSA Surveillance Culture - Final NO MRSA ISOLATED Complete Vitals/IOs Vital Signs Date Time Temp Pulse Resp B/P (MAP) Pulse Ox O2 Delivery O2 Flow Rate FiO2 08/07/17 05:55 97.7 56 18 116/68 (84) 98 Intake and Output 08/07/17 08/07/17 08/08/17 08:00 16:00 00:00 Intake Total 240 ml Balance 240 ml Assessment & Plan Problem List: (1) Schizophrenia, paranoid type ICD Codes: F20.0 - Paranoid schizophrenia Assessment & Plan: he continues to be psychotic, we'll continue current psychotropic regimen. (2) Polysubstance abuse ICD Codes: F19.10 - Other psychoactive substance abuse, uncomplicated Assessment & Plan Estimated LOS: days Justification for Cont. Inpt. He is acutely psychotic. He needs to continue psychiatric hospitalization for stabilization. Request HC Surrog/Guard Advoc?: Yes Nicanor Jewell MD Aug 07, 2017 15:03
[2017-08-07 16:00] VITALS: BP 124/62; PULSE 84; RESP 18; TEMP 98.1; O2SAT 96
[2017-08-07] MEDS: diphenhydrAMINE HCL 50 MG CAP PO PRN (20:31)
[2017-08-08 05:59] VITALS: BP 129/64; PULSE 63; RESP 19; TEMP 97.6; O2SAT 97
[2017-08-08] MEDS ORDERED: ARIPiprazole 15 MG TAB PO SCH (09:00)
[2017-08-08] MEDS ORDERED: ARIPiprazole 10 MG TAB PO SCH (09:00)
[2017-08-08] MEDS: DOXYCYCLINE HYCLATE 100 MG TAB PO SCH ×2 (09:03→20:36)
[2017-08-08] MEDS: CHLORHEXIDINE GLUCONATE 4% SOLN 120 ML BTL TOPICAL SCH (09:03)
[2017-08-08] MEDS: BENZTROPINE MESYLATE 1 MG TAB PO SCH ×2 (09:03→20:36)
--- NOTE | 2017-08-08 09:34 | HHI.PYPN ---
Subjective Chief Complaint: Psychosis Remarks On psychiatric evaluation today patient is calm, but guarded, a little bit irritable. At times he answer my questions with multiple profanities and becomes kind of disorganized. He continues to be paranoid toward people around his house. He is very preoccupied about being harmed by these people. But other than that he denies suicidal and homicidal ideation, he denies visual and auditory hallucinations. The patient has been compliant with his medications, no significant side effects. As per nurses, patient has been kind of secluded in his room. Mental Status Examination Appearance: Disheveled Consciousness: Alert Orientation: x4 Motor Activity: Other (no motor abnormalities noted. No hand tremor, no dystonia, no dyskinesia, no oral/lingual motor abnormalities.) Speech: Unremarkable Language: Adequate Fund of Knowledge: Adequate Attention and Concentration: Adequate Memory: Unremarkable Mood: Anxious, Irritable Affect: Irritable, Anxious Thought Process & Associations: Goal directed (toward discharge) Thought Content: Delusional Hallucination Type: None Delusion Type: Paranoid Suicidal Ideation: No (unreliable to contract for safety) Suicidal Plan: No Suicidal Intention: No Homicidal Ideation: No (unreliable to contract for safety) Homicidal Plan: No Homicidal Intention: No Insight: Poor Judgment: Poor Results Labs Date/Time Source Procedure Growth Status 08/03/17 22:10 Nasopharyngeal MRSA Surveillance Culture - Final NO MRSA ISOLATED Complete Vitals/IOs Vital Signs Date Time Temp Pulse Resp B/P (MAP) Pulse Ox O2 Delivery O2 Flow Rate FiO2 08/08/17 05:59 97.6 63 19 129/64 (85) 97 Assessment & Plan Problem List: (1) Schizophrenia, paranoid type ICD Codes: F20.0 - Paranoid schizophrenia Assessment & Plan: Continue current psychotropic regimen. Psychoeducation provided. (2) Polysubstance abuse ICD Codes: F19.10 - Other psychoactive substance abuse, uncomplicated Assessment & Plan Estimated LOS: days Justification for Cont. Inpt. Patient is acutely psychotic, he needs to continue psychiatric hospitalization for stabilization. Request HC Surrog/Guard Advoc?: Yes Nicanor Jewell MD Aug 08, 2017 09:34
[2017-08-08 18:04] VITALS: BP 115/69; PULSE 74; RESP 18; TEMP 98.2; O2SAT 100
[2017-08-09 05:02] VITALS: BP 121/115; PULSE 63; RESP 17; O2SAT 98
[2017-08-09] MEDS: CHLORHEXIDINE GLUCONATE 4% SOLN 120 ML BTL TOPICAL SCH (09:00)
[2017-08-09] MEDS: DOXYCYCLINE HYCLATE 100 MG TAB PO SCH ×2 (09:36→21:57)
[2017-08-09] MEDS: ARIPiprazole 30 MG TAB PO SCH (09:36)
[2017-08-09] MEDS: BENZTROPINE MESYLATE 1 MG TAB PO SCH ×2 (09:36→21:53)
--- NOTE | 2017-08-09 13:52 | HHI.PYPN ---
Subjective Chief Complaint: Psychosis Remarks Patient seen and examined. Chart reviewed. Case discussed with nursing staff who reports the patient has been no behavioral problem but remains quite delusional. On my examination today, the patient remains paranoid, particularly regarding his sister. He notes "she's the problem. She works for a computer company." The patient alleges that his sister is involved in some sort of "illegal activity over computers." He remains concerned about vigilantes, although he says that this is "the wrong word" to describe them. He denies any suicidal or homicidal ideation and in particular denies any urge to hurt his sister. He says that if he is worried about vigilantes going forward he will either "ignore it or call the candle making supervisor." Patient remains quite irritable though, and becomes particularly animated and even a little bit threatening in the context of demanding to be discharged. Denies side effects from medications. No physical complaints. Review of Systems ROS Limitations: Psychotic, Poor Historian Except as stated in HPI: all other systems reviewed are Neg Mental Status Examination Appearance: Disheveled Consciousness: Alert Orientation: x4 Motor Activity: Other (no abnormal motor movements noted.) Speech: Unremarkable Language: Adequate Fund of Knowledge: Adequate Attention and Concentration: Adequate Memory: Unremarkable Mood: Anxious, Irritable Affect: Irritable, Anxious Thought Process & Associations: Other (perseverative on discharge) Thought Content: Delusional Hallucination Type: None Delusion Type: Paranoid Suicidal Ideation: No (unreliable to contract for safety) Suicidal Plan: No Suicidal Intention: No Homicidal Ideation: No (unreliable to contract for safety) Homicidal Plan: No Homicidal Intention: No Insight: Poor Judgment: Poor Results Labs Date/Time Source Procedure Growth Status 08/03/17 22:10 Nasopharyngeal MRSA Surveillance Culture - Final NO MRSA ISOLATED Complete Labs reviewed. Vitals/IOs Vital Signs Date Time Temp Pulse Resp B/P (MAP) Pulse Ox O2 Delivery O2 Flow Rate FiO2 08/09/17 05:02 63 17 121/115 (117) 98 08/08/17 18:04 98.2 Intake and Output 08/09/17 08/09/17 08/10/17 08:00 16:00 00:00 Intake Total 480 ml 600 ml Balance 480 ml 600 ml Assessment & Plan Problem List: (1) Schizophrenia, paranoid type ICD Codes: F20.0 - Paranoid schizophrenia (2) Polysubstance abuse ICD Codes: F19.10 - Other psychoactive substance abuse, uncomplicated Assessment & Plan Patient received first 30 mg dose of Abilify today. Continue this medication as ordered for now. Patient might benefit from mood stabilizer to target irritability if this symptom is not completely managed by the Abilify. Continue to monitor on the inpatient unit. Continue other medications and care as ordered. Justification for Cont. Inpt. Impairment in reality construction. High risk for decompensation in less restrictive environment. Discharge Planning Pending psychiatric stabilization. Request HC Surrog/Guard Advoc?: Yes Anthony Diaz MD Aug 09, 2017 13:52
[2017-08-09 17:52] VITALS: BP 109/77; PULSE 70; RESP 18; TEMP 98.8; O2SAT 99
[2017-08-09] MEDS: diphenhydrAMINE HCL 50 MG CAP PO PRN (21:53)
[2017-08-10 06:23] VITALS: BP 125/52; PULSE 89; RESP 18; TEMP 97.9; O2SAT 98
[2017-08-10] MEDS: BENZTROPINE MESYLATE 1 MG TAB PO SCH ×2 (09:00→20:53)
[2017-08-10] MEDS: ARIPiprazole 30 MG TAB PO SCH (09:12)
[2017-08-10] MEDS: DOXYCYCLINE HYCLATE 100 MG TAB PO SCH ×2 (09:12→20:52)
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
[2017-08-10 18:24] VITALS: BP 104/55; PULSE 76; RESP 18; TEMP 96.3; O2SAT 98
[2017-08-10] MEDS: diphenhydrAMINE HCL 50 MG CAP PO PRN (20:52)
[2017-08-10] MEDS: CHLORHEXIDINE GLUCONATE 4% SOLN 120 ML BTL TOPICAL SCH (20:56)
[2017-08-10] MEDS: ACETAMINOPHEN 325 MG TAB PO PRN (22:07)
[2017-08-11 06:30] LABS: BASOPHIL % 0.3 % (0.0-2.0); EOSINOPHIL # 0.1 TH/MM3 (0-0.4); EOSINOPHIL % 0.7 % (0.0-4.0); HEMATOCRIT 44.7 % (39.0-51.0); HEMOGLOBIN 14.6 GM/DL (13.0-17.0); LYMPH % 5.4 % (9.0-44.0); LYMPHOCYTE # 0.8 TH/MM3 (1.0-4.8); MEAN CELL VOLUME 81.7 FL (80.0-100.0); MEAN CORPUSCULAR HEMOGLOBIN 26.6 PG (27.0-34.0); MEAN CORPUSCULAR HGB CONC 32.6 % (32.0-36.0); MEAN PLATELET VOLUME 9.1 FL (7.0-11.0); MONO % 5.7 % (0.0-8.0); MONOCYTE # 0.8 TH/MM3 (0-0.9); NEUT % 87.9 % (16.0-70.0); PLATELET COUNT 237 TH/MM3 (150-450); RED BLOOD COUNT 5.48 MIL/MM3 (4.50-5.90); RED CELL DISTRIBUTION WIDTH 14.9 % (11.6-17.2); WHITE BLOOD COUNT 14.7 TH/MM3 (4.0-11.0)
[2017-08-11] MEDS: ARIPiprazole 30 MG TAB PO SCH (09:00)
[2017-08-11] MEDS: CHLORHEXIDINE GLUCONATE 4% SOLN 120 ML BTL TOPICAL SCH (09:00)
[2017-08-11] MEDS: BENZTROPINE MESYLATE 1 MG TAB PO SCH ×2 (09:00→21:26)
[2017-08-11] MEDS: DOXYCYCLINE HYCLATE 100 MG TAB PO SCH ×2 (09:00→21:26)
--- NOTE | 2017-08-11 10:20 | HHI.PYPN ---
Subjective Chief Complaint: Psychosis Remarks Patient seen and examined. Chart reviewed. Case discussed with nursing staff. On my examination today, the patient is angry, irritable, dysphoric. He says "I want to go home before trouble starts. I'm going to start changing how respectful I am [if he is retained on the unit]." He says that we will need to put him in a "padded cell" because of his agitation. He tells me he plans to refuse psychotropic medications, noting "it's going to be a fight every day." He remains paranoid. No side effects from medications. No physical complaints. Review of Systems ROS Limitations: Uncooperative, Psychotic, Poor Historian Except as stated in HPI: all other systems reviewed are Neg Mental Status Examination Appearance: Disheveled Consciousness: Alert Orientation: Person, Place (at least) Motor Activity: Other (no abnormal motor movements noted) Speech: Unremarkable Language: Adequate Fund of Knowledge: Adequate Attention and Concentration: Adequate Memory: Unremarkable Mood: Angry, Anxious, Irritable Affect: Irritable, Anxious, Other (hostile) Thought Process & Associations: Other (perseverative on discharge) Thought Content: Delusional Hallucination Type: None Delusion Type: Other (paranoid/persecutory delusions as before) Suicidal Ideation: No (no SI voiced. Unreliable to contract for safety.) Homicidal Ideation: No (no HI voiced. Unreliable to contract for safety.) Insight: Poor Judgment: Poor Results Labs Test 08/11/17 05:55 White Blood Count 14.7 TH/MM3 Red Blood Count 5.48 MIL/MM3 Hemoglobin 14.6 GM/DL Hematocrit 44.7 % Mean Corpuscular Volume 81.7 FL Mean Corpuscular Hemoglobin 26.6 PG Mean Corpuscular Hemoglobin Concent 32.6 % Red Cell Distribution Width 14.9 % Platelet Count 237 TH/MM3 Mean Platelet Volume 9.1 FL Neutrophils (%) (Auto) 87.9 % Lymphocytes (%) (Auto) 5.4 % Monocytes (%) (Auto) 5.7 % Eosinophils (%) (Auto) 0.7 % Basophils (%) (Auto) 0.3 % Neutrophils # (Auto) 13.0 TH/MM3 Lymphocytes # (Auto) 0.8 TH/MM3 Monocytes # (Auto) 0.8 TH/MM3 Eosinophils # (Auto) 0.1 TH/MM3 Basophils # (Auto) 0.0 TH/MM3 CBC Comment DIFF FINAL Differential Comment Date/Time Source Procedure Growth Status 08/03/17 22:10 Nasopharyngeal MRSA Surveillance Culture - Final NO MRSA ISOLATED Complete Labs reviewed. Mild leukocytosis noted without obvious signs or symptoms of infection. Vitals/IOs Vital Signs Date Time Temp Pulse Resp B/P (MAP) Pulse Ox O2 Delivery O2 Flow Rate FiO2 08/10/17 18:24 96.3 76 18 104/55 (71) 98 Assessment & Plan Problem List: (1) Schizophrenia, paranoid type ICD Codes: F20.0 - Paranoid schizophrenia (2) Polysubstance abuse ICD Codes: F19.10 - Other psychoactive substance abuse, uncomplicated Assessment & Plan Case discussed with mother/GA. No meaningful improvement with Abilify. We will switch to Risperdal M-Tabs 1mg BID with plans to titrate to effect. Since patient has said he plans to refuse meds, I also obtain consent for Zyprexa IM p.r.n. refuses PO Risperdal. Continue Cogentin as ordered. R/B/A for meds discussed with mother. I also suggest she look into SHOLA. I will ask the hospitalist to return to address the leukocytosis. Continue to monitor patient on high-acuity unit. A low threshold for one-to-one should patient's behavior deteriorate. Continue other meds and care as ordered. Justification for Cont. Inpt. Medication changes. Impairment in reality construction. High risk for decompensation in less restrictive environment. Discharge Planning Pending psychiatric stabilization. Request HC Surrog/Guard Advoc?: Yes Anthony Diaz MD Aug 11, 2017 10:20
--- NOTE | 2017-08-11 15:20 | RADRPT ---
EXAM DATE/TIME: 08/11/2017 14:50 [facility] COMPARISON: No previous studies available for comparison. INDICATIONS : Leukocytosis, cough, and shortness of breath. MEDICAL HISTORY : None. SURGICAL HISTORY : None. ENCOUNTER: Initial ACUITY: 1 day PAIN SCORE: 0/10 LOCATION: chest FINDINGS: A single view of the chest demonstrates the lungs to be symmetrically aerated without evidence of mas s, infiltrate or effusion. The cardiomediastinal contours are unremarkable. Osseous structures are intact. CONCLUSION: No acute disease. Chago Hernandez MD on August 11, 2017 at 15:18 Board Certified Radiologist. This report was verified electronically.
--- NOTE | 2017-08-11 15:44 | PD.TTN ---
Patient Problems 1. Discharge planning 2. Medication compliance 3. Knowledge deficit 4. Lack of coping skills Progress Toward Goals Provider Present: Dr. Paola Diaz Provider Input: 08/10/2017: patient continues to be delusional and requires medication and mood stablizing Nurse(s) Present: RN Nurse(s) Input: 08/10/2017; patient requires coaching and prompting with medication and mood Psychiatric Counselors Present: HAO Mohr Psych Therapist Input: 08/10/2017; State package will be submitted to the State Group Spec/RT/OT/HUNTER Present: Jim Farmer OT, Adam Lampert, COTA Group Spec/RT/OT/HUNTER Input: 08/10/2017; patient comes to select groups with no participation Documentation Scribe: Savanah Vivar ZHANNA Aug 11, 2017 15:44
[2017-08-11 17:14] VITALS: BP 119/75; PULSE 94; RESP 18; TEMP 97.9; O2SAT 99
--- NOTE | 2017-08-11 17:32 | HHI.PR ---
Subjective Remarks Reconsulted for leukocytosis. Patient seen and examined. Patient is very upset that he has not been discharged as of yet. He denies any fever or chills. Does report grayish sputum production but denies cough. He denies any chest pain or shortness of breath. He denies any hematuria or dysuria. He denies any diarrhea or constipation. Objective Vitals Vital Signs Date Time Temp Pulse Resp B/P (MAP) Pulse Ox O2 Delivery O2 Flow Rate FiO2 08/11/17 17:14 97.9 94 18 119/75 (90) 99 08/10/17 18:24 96.3 76 18 104/55 (71) 98 Result Diagram: 08/11/17 0555 Imaging Last Impressions Chest X-Ray 08/11/17 0000 Signed Impressions: Service Date/Time: Friday, August 11, 2017 14:50 - CONCLUSION: No acute disease. Chago Hernandez MD Objective Remarks GENERAL: Well-nourished, well-developed young male patient in [facility]. Awake and alert. Sitting in chair in his room. SKIN: Warm and dry. Multiple scattered lesions on face, neck, chest and back, much improved. HEAD: Normocephalic. Atraumatic. EYES: EOMI. No scleral icterus. No injection or drainage. ENT: No nasal bleeding or discharge. Mucous membranes pink and moist. NECK: Supple. Trachea midline. CARDIOVASCULAR: Regular rate and rhythm. S1, S2 noted. No murmur appreciated. RESPIRATORY: Nonlabored. Clear to auscultation. Breath sounds equal bilaterally. GASTROINTESTINAL: Abdomen soft, non-tender, nondistended. Normoactive bowel sounds x4. MUSCULOSKELETAL: No obvious deformities. Extremities without clubbing, cyanosis , or edema. NEUROLOGICAL: Awake and alert. Motor and sensory function grossly intact. No focal neurologic findings appreciated. Normal speech. PSYCHIATRIC: Agitated. Poor insight and judgment. Delusional thought process. Medications and IVs Current Medications Medications (Trade) Dose Ordered Sig/Kasia Route Start Time Stop Time Status Last Admin (Ativan) 1 mg Q6H PRN PO 08/01/17 07:15 08/10/17 20:52 (Ativan Inj) 1 mg Q6H PRN IM 08/01/17 07:15 08/09/17 20:02 (Benadryl) 50 mg Q6H PRN PO 08/01/17 07:15 08/10/17 20:52 (Benadryl Inj) 50 mg Q6H PRN IM 08/01/17 07:15 08/03/17 17:05 (Tylenol) 650 mg Q4H PRN PO 08/01/17 07:15 08/10/17 22:07 (Milk Of Magnesia Liq) 30 ml DAILY PRN PO 08/01/17 07:15 (Mag-Al Plus Susp Liq) 30 ml Q6H PRN PO 08/01/17 07:15 08/10/17 22:07 (Habitrol 21 Mg Patch.24 Hr) 1 patch DAILY PRN T-DERMAL 08/01/17 07:15 (Pill Splitter) 1 ea UNSCH PRN OTHER 08/02/17 12:30 (Vibratab) 100 mg Q12HR PO 08/02/17 21:00 08/16/17 20:59 08/11/17 09:00 (Cogentin) 1 mg Q12HR PO 08/03/17 10:00 08/11/17 09:00 (Hibiclens 4% Top Soln) 1 applic DAILY TOPICAL 08/03/17 15:45 08/09/17 09:00 (risperDAL M-TAB) 1 mg Q12HR PO 08/11/17 21:00 (ZyPREXA INJ) 10 mg Q12HR PRN IM 08/11/17 21:00 A/P Assessment and Plan 31yo with a history of psychosis and substance use admitted under Belcher act to inpatient psychiatry unit. Hospitalist service is consulted for rash/lesions on face, neck and back. Patient has history of MRSA. Psychosis, under Belcher Act -Management per psychiatric team Leukocytosis -Suspect reactive. Patient is afebrile. VSS. Does not appear septic. No acute medical complaints except for grayish sputum production. -CXR ordered and no acute process identified, images reviewed by me -obtain UA -Repeat CBC in a.m. if downward trend no further workup/intervention needed Rash, on face, neck, chest and back, suspect MRSA Hx of MRSA infection requiring I&D -MRSA screen negative -Continue on doxycycline BID x 14 days -Continue Bactroban twice a day to the anterior nares x 5 days at the beginning of each month per ID note 05/21/16. -Hibiclens baths daily Polysubstance use -Urine drug screen positive for amphetamines and cannabis -encouraged cessation DVT prophylaxis -Patient is ambulatory Kimberlee Wilhelm Aug 11, 2017 17:32
[2017-08-11 18:21] LABS: BACTERIA, URINE RARE /hpf; BILIRUBIN, URINE NEG (NEG); BLOOD, URINE NEG (NEG); GLUCOSE,URINE NEG (NEG); KETONE, URINE NEG (NEG); MUCUS URINE FEW /lpf (OCC); NITRITE,URINE NEG (NEG); PH, URINE 6.5 (5.0-8.5); URINE COLOR YELLOW (YELLW/STRAW); URINE LEUKOCYTE ESTERASE NEG (NEG)
[2017-08-11] MEDS: risperiDONE ODT 1 MG TAB PO SCH (21:00)
[2017-08-11] MEDS ORDERED: OLANZapine IM 10 MG VIAL IM PRN (21:00)
[2017-08-12] MEDS: ACETAMINOPHEN 325 MG TAB PO PRN ×2 (03:36→17:20)
[2017-08-12 06:13] VITALS: BP 114/56; PULSE 91; RESP 18; TEMP 98.4; O2SAT 97
[2017-08-12 08:41] LABS: AUTOMATED NEUTROPHIL # 17.4 TH/MM3 (1.8-7.7); BASOPHIL % 0.2 % (0.0-2.0); EOSINOPHIL # 0.1 TH/MM3 (0-0.4); EOSINOPHIL % 0.6 % (0.0-4.0); HEMATOCRIT 43.3 % (39.0-51.0); HEMOGLOBIN 14.5 GM/DL (13.0-17.0); LYMPH % 6.1 % (9.0-44.0); LYMPHOCYTE # 1.2 TH/MM3 (1.0-4.8); MEAN CELL VOLUME 81.2 FL (80.0-100.0); MEAN CORPUSCULAR HEMOGLOBIN 27.1 PG (27.0-34.0); MEAN CORPUSCULAR HGB CONC 33.4 % (32.0-36.0); MEAN PLATELET VOLUME 9.3 FL (7.0-11.0); MONO % 5.2 % (0.0-8.0); NEUT % 87.9 % (16.0-70.0); PLATELET COUNT 231 TH/MM3 (150-450); RED BLOOD COUNT 5.33 MIL/MM3 (4.50-5.90); RED CELL DISTRIBUTION WIDTH 14.5 % (11.6-17.2); WHITE BLOOD COUNT 19.8 TH/MM3 (4.0-11.0)
[2017-08-12] MEDS: CHLORHEXIDINE GLUCONATE 4% SOLN 120 ML BTL TOPICAL SCH (09:00)
[2017-08-12 09:02] LABS: ALBUMIN 3.6 GM/DL (3.4-5.0); ALT (GPT) 50 U/L (12-78); AST (GOT) 24 U/L (15-37); BICARBONATE 29.1 MEQ/L (21.0-32.0); BLOOD UREA NITROGEN 9 MG/DL (7-18); CALCIUM 8.9 MG/DL (8.5-10.1); CHLORIDE 103 MEQ/L (98-107); CREATININE 0.81 MG/DL (0.60-1.30); GLOMERULAR FILTRATION RATE 113 ML/MIN (>89); GLUCOSE,RANDOM 92 MG/DL (74-106); SODIUM (NA) 139 MEQ/L (136-145)
[2017-08-12 09:04] LABS: ALKALINE PHOSPHATASE 81 U/L (45-117); TOTAL BILIRUBIN ADULT 0.2 MG/DL (0.2-1.0); TOTAL PROTEIN 7.4 GM/DL (6.4-8.2)
[2017-08-12] MEDS: BENZTROPINE MESYLATE 1 MG TAB PO SCH ×2 (09:07→21:19)
[2017-08-12] MEDS: DOXYCYCLINE HYCLATE 100 MG TAB PO SCH ×2 (09:07→21:19)
[2017-08-12] MEDS: risperiDONE ODT 1 MG TAB PO SCH (09:07)
--- NOTE | 2017-08-12 11:35 | HHI.PYPN ---
Subjective Chief Complaint: Psychosis Remarks Patient seen and examined with nurse. Chart reviewed. Case discussed with nursing staff. On my examination today, patient remains angry, dysphoric, discharge focused. He remains delusional on themes as detailed before. He continues to blame his sister for all of his problems and insists that his mother is afraid of his sister. No reported side effects from medications. No physical complaints. Review of Systems ROS Limitations: Psychotic, Poor Historian Except as stated in HPI: all other systems reviewed are Neg Mental Status Examination Appearance: Disheveled Consciousness: Alert Orientation: Person, Place Motor Activity: Other (no motor abnormalities noted) Speech: Unremarkable Language: Adequate Fund of Knowledge: Adequate Attention and Concentration: Adequate Memory: Unremarkable Mood: Angry, Irritable Affect: Irritable, Anxious, Other (dysphoric) Thought Process & Associations: Other (remains perseverative on discharge) Thought Content: Delusional Hallucination Type: None Delusion Type: Other (paranoid/persecutory delusions as before) Suicidal Ideation: No (none voiced. Unreliable to contract for safety.) Homicidal Ideation: No (none voiced. Unreliable to contract for safety.) Insight: Poor Judgment: Poor Mental Status Exam Remarks No hand tremor. No hypertonia. No cogwheeling. No dystonias/dyskinesias. Results Labs Test 08/11/17 16:00 08/12/17 07:14 Urine Color YELLOW Urine Turbidity CLEAR Urine pH 6.5 Urine Specific [place] 1.024 Urine Protein NEG mg/dL Urine Glucose (UA) NEG mg/dL Urine Ketones NEG mg/dL Urine Occult Blood NEG Urine Nitrite NEG Urine Bilirubin NEG Urine Urobilinogen LESS THAN 2.0 MG/DL Urine Leukocyte Esterase NEG Urine RBC LESS THAN 1 /hpf Urine WBC 1 /hpf Urine Bacteria RARE /hpf Urine Mucus FEW /lpf Microscopic Urinalysis Comment CULT NOT INDICATED White Blood Count 19.8 TH/MM3 Red Blood Count 5.33 MIL/MM3 Hemoglobin 14.5 GM/DL Hematocrit 43.3 % Mean Corpuscular Volume 81.2 FL Mean Corpuscular Hemoglobin 27.1 PG Mean Corpuscular Hemoglobin Concent 33.4 % Red Cell Distribution Width 14.5 % Platelet Count 231 TH/MM3 Mean Platelet Volume 9.3 FL Neutrophils (%) (Auto) 87.9 % Lymphocytes (%) (Auto) 6.1 % Monocytes (%) (Auto) 5.2 % Eosinophils (%) (Auto) 0.6 % Basophils (%) (Auto) 0.2 % Neutrophils # (Auto) 17.4 TH/MM3 Lymphocytes # (Auto) 1.2 TH/MM3 Monocytes # (Auto) 1.0 TH/MM3 Eosinophils # (Auto) 0.1 TH/MM3 Basophils # (Auto) 0.0 TH/MM3 CBC Comment DIFF FINAL Differential Comment Blood Urea Nitrogen 9 MG/DL Creatinine 0.81 MG/DL Random Glucose 92 MG/DL Total Protein 7.4 GM/DL Albumin 3.6 GM/DL Calcium Level 8.9 MG/DL Alkaline Phosphatase 81 U/L Aspartate Amino Transf (AST/SGOT) 24 U/L Alanine Aminotransferase (ALT/SGPT) 50 U/L Total Bilirubin 0.2 MG/DL Sodium Level 139 MEQ/L Potassium Level 4.3 MEQ/L Chloride Level 103 MEQ/L Carbon Dioxide Level 29.1 MEQ/L Anion Gap 7 MEQ/L Estimat Glomerular Filtration Rate 113 ML/MIN Date/Time Source Procedure Growth Status 08/03/17 22:10 Nasopharyngeal MRSA Surveillance Culture - Final NO MRSA ISOLATED Complete Labs reviewed. CMP unremarkable. UA bland. Increasing leukocytosis noted. Last Impressions Chest X-Ray 08/11/17 0000 Signed Impressions: Service Date/Time: Friday, August 11, 2017 14:50 - CONCLUSION: No acute disease. Chago Hernandez MD Vitals/IOs Vital Signs Date Time Temp Pulse Resp B/P (MAP) Pulse Ox O2 Delivery O2 Flow Rate FiO2 08/12/17 06:13 98.4 91 18 114/56 (75) 97 Intake and Output 08/12/17 08/12/17 08/13/17 08:00 16:00 00:00 Intake Total 360 ml Balance 360 ml Assessment & Plan Problem List: (1) Schizophrenia, paranoid type ICD Codes: F20.0 - Paranoid schizophrenia (2) Polysubstance abuse ICD Codes: F19.10 - Other psychoactive substance abuse, uncomplicated Assessment & Plan Worsening leukocytosis noted. Hospitalist input noted and appreciated. A reactive leukocytosis is suspected. NMS can cause a leukocytosis but is not suspected based on exam. I will check a CK and serum iron out of an abundance of caution and trend CBC. I will hold off on titrating Risperdal today but will not hold this agent at this time. If patient does become hypertonic or febrile or if exam is suggestive of NMS, will immediately hold antipsychotic. Patient remains quite psychotic and requires ongoing monitoring on the high acuity unit. Continue other medications and care as ordered. Justification for Cont. Inpt. Complicating condition. Impairment in reality construction. High risk for decompensation in less restrictive environment. Discharge Planning Pending psychiatric stabilization. Request HC Surrog/Guard Advoc?: Yes Anthony Diaz MD Aug 12, 2017 11:35
[2017-08-12 14:34] LABS: IRON (FE) 21 MCG/DL (65-175)
--- NOTE | 2017-08-12 14:43 | HHI.PR ---
Subjective Remarks Reconsulted for leukocytosis. Patient seen and examined. Patient continues to be very agitated that he is still inpatient. He reports chills last night. States he vomited 3 times yesterday. He denies any abdominal pain. He denies any diarrhea states his stools have been "like sarahi" but then also says they are sometimes soft. He denies any throat soreness or difficulty swallowing. Reports grayish sputum production occasionally but denies any cough. He reports dull nonradicular chest pain "like somebody punched me" and states it is exacerbated by his continued hospital stay against his will. He denies any shortness of breath. He denies any dysuria. He is a questionable historian. Discussed with nursing staff, no mention of vomiting was given in report. He denies any open sores or lesions. He does endorse body aches. Objective Vitals Vital Signs Date Time Temp Pulse Resp B/P (MAP) Pulse Ox O2 Delivery O2 Flow Rate FiO2 08/12/17 06:13 98.4 91 18 114/56 (75) 97 08/11/17 17:14 97.9 94 18 119/75 (90) 99 I/O 08/11/17 08/11/17 08/11/17 08/12/17 08/12/17 08/12/17 07:00 15:00 23:00 07:00 15:00 23:00 Intake Total 720 ml Balance 720 ml Intake Oral 720 ml Result Diagram: 08/12/17 0714 08/12/17 0714 Imaging Last Impressions Chest X-Ray 08/11/17 0000 Signed Impressions: Service Date/Time: Friday, August 11, 2017 14:50 - CONCLUSION: No acute disease. Chago Hernandez MD Objective Remarks GENERAL: Well-nourished, well-developed young male patient in [facility]. Awake and alert. Lying in hospital bed. Appears comfortable. SKIN: Warm and dry. Multiple scattered lesions on face, neck, chest and back, much improved. HEAD: Normocephalic. Atraumatic. EYES: EOMI. No scleral icterus. No injection or drainage. ENT: No nasal bleeding or discharge. Mucous membranes pink and moist. NECK: Supple. Trachea midline. CARDIOVASCULAR: Regular rate and rhythm. S1, S2 noted. No murmur appreciated. RESPIRATORY: Nonlabored. Clear to auscultation. Breath sounds equal bilaterally. GASTROINTESTINAL: Abdomen soft, non-tender, nondistended. Normoactive bowel sounds x4. MUSCULOSKELETAL: No obvious deformities. Extremities without clubbing, cyanosis , or edema. NEUROLOGICAL: Awake and alert. Motor and sensory function grossly intact. No focal neurologic findings appreciated. Normal speech. PSYCHIATRIC: Agitated. Poor insight and judgment. Delusional thought process. Medications and IVs Current Medications Medications (Trade) Dose Ordered Sig/Kasia Route Start Time Stop Time Status Last Admin (Ativan) 1 mg Q6H PRN PO 08/01/17 07:15 08/10/17 20:52 (Ativan Inj) 1 mg Q6H PRN IM 08/01/17 07:15 08/09/17 20:02 (Benadryl) 50 mg Q6H PRN PO 08/01/17 07:15 08/10/17 20:52 (Benadryl Inj) 50 mg Q6H PRN IM 08/01/17 07:15 08/03/17 17:05 (Tylenol) 650 mg Q4H PRN PO 08/01/17 07:15 08/12/17 03:36 (Milk Of Magnesia Liq) 30 ml DAILY PRN PO 08/01/17 07:15 (Mag-Al Plus Susp Liq) 30 ml Q6H PRN PO 08/01/17 07:15 08/10/17 22:07 (Habitrol 21 Mg Patch.24 Hr) 1 patch DAILY PRN T-DERMAL 08/01/17 07:15 (Pill Splitter) 1 ea UNSCH PRN OTHER 08/02/17 12:30 (Vibratab) 100 mg Q12HR PO 08/02/17 21:00 08/16/17 20:59 08/12/17 09:07 (Cogentin) 1 mg Q12HR PO 08/03/17 10:00 08/12/17 09:07 (Hibiclens 4% Top Soln) 1 applic DAILY TOPICAL 08/03/17 15:45 08/12/17 09:00 (risperDAL M-TAB) 1 mg Q12HR PO 08/11/17 21:00 08/12/17 09:07 (ZyPREXA INJ) 10 mg Q12HR PRN IM 08/11/17 21:00 A/P Assessment and Plan 31yo with a history of psychosis and substance use admitted under Belcher act to inpatient psychiatry unit. Hospitalist services is consulted for rash/lesions on face, neck and back. Patient has history of MRSA. Psychosis, under [place] Act -Management per psychiatric team Leukocytosis N/V, body aches, sputum production ?loose stools -white count trending up 14.7 -> 19.8 -Suspect reactive. Patient is afebrile. VSS. Does not appear septic. -UA unremarkable -CXR ordered and no acute process identified, images reviewed by me -obtain KUB -stool studies ordered (recently patient tested positive for Norovirus) and C diff if patient has any loose stools -obtain influenza -sputum cx ordered -Repeat CBC in a.m. Rash, on face, neck, chest and back, suspect MRSA Hx of MRSA infection requiring I&D -MRSA screen negative -Continue on doxycycline BID x 14 days -Continue Bactroban twice a day to the anterior nares x 5 days at the beginning of each month per ID note 05/21/16. -Hibiclens baths daily Polysubstance use -Urine drug screen positive for amphetamines and cannabis -encouraged cessation DVT prophylaxis -Patient is ambulatory Kimberlee Wilhelm Aug 12, 2017 14:43
[2017-08-12 15:20] VITALS: BP 124/58; PULSE 83; TEMP 99.2; O2SAT 98
[2017-08-12 15:23] VITALS: BP 116/62; PULSE 88
[2017-08-12 15:24] VITALS: BP 119/56; PULSE 122
--- NOTE | 2017-08-12 16:19 | RADRPT ---
EXAM DATE/TIME: 08/12/2017 16:04 [facility] COMPARISON: No previous studies available for comparison. INDICATIONS : Vomiting. MEDICAL HISTORY : Cellulitis. Right arm fracture. SURGICAL HISTORY : Tonsillectomy. ENCOUNTER: Initial ACUITY: 1 day PAIN SCORE: 0/10 LOCATION: Bilateral Abdomen FINDINGS: Supine view of the abdomen was performed. Moderate amount of stool throughout the colon. Single air f illed loop of small bowel in the left lower quadrant. No pneumatosis or free air. No abnormal calcifi cations. The osseous structures are unremarkable. CONCLUSION: 1. Single loop of small bowel that is marginal in size. This finding is very nonspecific. 2. Moderate stool throughout the colon consistent with some degree of constipation. Ej Belcher MD on August 12, 2017 at 16:16 Board Certified Radiologist. This report was verified electronically.
[2017-08-12 18:43] VITALS: BP 115/63; PULSE 84; TEMP 98.8; O2SAT 97
[2017-08-12] MEDS: diphenhydrAMINE HCL 50 MG CAP PO PRN (21:19)
[2017-08-12 22:00] VITALS: BP 119/73; PULSE 76; RESP 18; TEMP 96.7; O2SAT 99
[2017-08-13 02:15] VITALS: BP 114/59; PULSE 62; RESP 18; TEMP 98.4; O2SAT 97
[2017-08-13 05:54] VITALS: BP 123/61; PULSE 70; RESP 17; TEMP 98.1; O2SAT 99
[2017-08-13] MEDS: NICOTINE 21 MG/24 HR PATCH T-DERMAL PRN (08:53)
[2017-08-13] MEDS: BENZTROPINE MESYLATE 1 MG TAB PO SCH ×2 (08:54→20:37)
[2017-08-13] MEDS: DOXYCYCLINE HYCLATE 100 MG TAB PO SCH ×2 (08:54→20:37)
[2017-08-13] MEDS: CHLORHEXIDINE GLUCONATE 4% SOLN 120 ML BTL TOPICAL SCH ×2 (08:54→12:17)
[2017-08-13 09:49] LABS: AUTOMATED NEUTROPHIL # 7.7 TH/MM3 (1.8-7.7); BASOPHIL % 0.3 % (0.0-2.0); EOSINOPHIL # 0.2 TH/MM3 (0-0.4); EOSINOPHIL % 1.5 % (0.0-4.0); HEMATOCRIT 41.4 % (39.0-51.0); LYMPH % 18.4 % (9.0-44.0); MEAN CELL VOLUME 81.6 FL (80.0-100.0); MEAN CORPUSCULAR HEMOGLOBIN 27.7 PG (27.0-34.0); MEAN CORPUSCULAR HGB CONC 33.9 % (32.0-36.0); MEAN PLATELET VOLUME 9.1 FL (7.0-11.0); MONO % 7.3 % (0.0-8.0); MONOCYTE # 0.8 TH/MM3 (0-0.9); NEUT % 72.5 % (16.0-70.0); PLATELET COUNT 220 TH/MM3 (150-450); RED BLOOD COUNT 5.07 MIL/MM3 (4.50-5.90); RED CELL DISTRIBUTION WIDTH 14.8 % (11.6-17.2); WHITE BLOOD COUNT 10.6 TH/MM3 (4.0-11.0)
--- NOTE | 2017-08-13 10:20 | PD.TTN ---
Patient Problems 1. Discharge planning 2. Medication compliance 3. Knowledge deficit 4. Lack of coping skills Progress Toward Goals Provider Present: Dr. Paola Diaz Provider Input: 08/13/2017: First episode, needs medication, needs stabilization, State referral. 08/10/2017: patient continues to be delusional and requires medication and mood stablizing Nurse(s) Present: RN Nurse(s) Input: 08/10/2017; patient requires coaching and prompting with medication and mood Psychiatric Counselors Present: Savanah Duran [facility] Psych Therapist Input: 08/10/2017; State package will be submitted to the State Group Spec/RT/OT/HUNTER Present: BALTAZAR Drake, Jim Farmer, OT, Silvino Dobbs, [place] Group Spec/RT/OT/HUNTER Input: 08/13/2017: Patient has been attending select group activities. Guarded and suspicious. 08/10/2017; patient comes to select groups with no participation Discharge Plan 08/13/2017: Referral to [facility] Documentation Scribe: Maria D Grider Aug 13, 2017 10:20
[2017-08-13 10:22] LABS: IRON (FE) 28 MCG/DL (65-175)
[2017-08-13 11:00] VITALS: BP 124/65; PULSE 83; RESP 18; TEMP 98; O2SAT 100
[2017-08-13] MEDS ORDERED: POLYETHYLENE GLYCOL 17 GM PKG PO ONE (11:15)
[2017-08-13] MEDS ORDERED: DOCUSATE SODIUM 50 MG/SENNA 8.6 MG TAB PO ONE (11:15)
--- NOTE | 2017-08-13 11:52 | HHI.PR ---
Subjective Remarks Reconsulted for leukocytosis. Patient seen and examined. Patient denies any fever or chills. Denies any chest pain or shortness of breath. Denies any nausea, vomiting or abdominal pain. Denies any dysuria. Denies any diarrhea. States he is having hard stools. Objective Vitals Vital Signs Date Time Temp Pulse Resp B/P (MAP) Pulse Ox O2 Delivery O2 Flow Rate FiO2 08/13/17 05:54 98.1 70 17 123/61 (81) 99 08/13/17 02:15 98.4 62 18 114/59 (77) 97 08/12/17 22:00 96.7 76 18 119/73 (88) 99 08/12/17 18:43 98.8 84 115/63 (80) 97 08/12/17 15:24 122 119/56 (77) 08/12/17 15:23 88 116/62 (80) 08/12/17 15:20 99.2 83 124/58 (80) 98 I/O 08/12/17 08/12/17 08/12/17 08/13/17 08/13/17 08/13/17 07:00 15:00 23:00 07:00 15:00 23:00 Intake Total 720 ml Balance 720 ml Intake Oral 720 ml Result Diagram: 08/13/17 0915 08/12/17 0714 Imaging Last Impressions Abdomen X-Ray 08/12/17 0000 Signed Impressions: Service Date/Time: August 16:04 - CONCLUSION: 1. Single loop of small bowel that is marginal in size. This finding is very nonspecific. 2. Moderate stool throughout the colon consistent with some degree of constipation. Ej Belcher MD Chest X-Ray 08/11/17 0000 Signed Impressions: Service Date/Time: Friday, August 11, 2017 14:50 - CONCLUSION: No acute disease. Chago Hernandez MD Objective Remarks GENERAL: Well-nourished, well-developed young male patient in NAD. Lying in bed awake and alert. Calm and cooperative. SKIN: Warm and dry. Multiple scattered lesions on face, neck, chest and back, much improved. HEAD: Normocephalic. Atraumatic. EYES: EOMI. No scleral icterus. No injection or drainage. ENT: No nasal bleeding or discharge. Mucous membranes pink and moist. NECK: Supple. Trachea midline. CARDIOVASCULAR: Regular rate and rhythm. S1, S2 noted. No murmur appreciated. RESPIRATORY: Nonlabored. Clear to auscultation. Breath sounds equal bilaterally. GASTROINTESTINAL: Abdomen soft, non-tender, nondistended. Normoactive bowel sounds x4. MUSCULOSKELETAL: No obvious deformities. Extremities without clubbing, cyanosis , or edema. NEUROLOGICAL: Awake and alert. Motor and sensory function grossly intact. No focal neurologic findings appreciated. Normal speech. PSYCHIATRIC: Poor insight and judgment. Delusional thought process. Medications and IVs Current Medications Medications (Trade) Dose Ordered Sig/Kasia Route Start Time Stop Time Status Last Admin (Ativan) 1 mg Q6H PRN PO 08/01/17 07:15 08/10/17 20:52 (Ativan Inj) 1 mg Q6H PRN IM 08/01/17 07:15 08/09/17 20:02 (Benadryl) 50 mg Q6H PRN PO 08/01/17 07:15 08/12/17 21:19 (Benadryl Inj) 50 mg Q6H PRN IM 08/01/17 07:15 08/03/17 17:05 (Tylenol) 650 mg Q4H PRN PO 08/01/17 07:15 08/12/17 17:20 (Milk Of Magnesia Liq) 30 ml DAILY PRN PO 08/01/17 07:15 (Mag-Al Plus Susp Liq) 30 ml Q6H PRN PO 08/01/17 07:15 08/10/17 22:07 (Habitrol 21 Mg Patch.24 Hr) 1 patch DAILY PRN T-DERMAL 08/01/17 07:15 08/13/17 08:53 (Pill Splitter) 1 ea UNSCH PRN OTHER 08/02/17 12:30 (Vibratab) 100 mg Q12HR PO 08/02/17 21:00 08/16/17 20:59 08/13/17 08:54 (Cogentin) 1 mg Q12HR PO 08/03/17 10:00 08/13/17 08:54 (Hibiclens 4% Top Soln) 1 applic DAILY TOPICAL 08/03/17 15:45 08/13/17 08:54 (risperDAL M-TAB) 1 mg Q12HR PO 08/11/17 21:00 Future Hold 08/12/17 09:07 (ZyPREXA INJ) 10 mg Q12HR PRN IM 08/11/17 21:00 Future Hold (Miranda-Colace) 1 tab BID PO 08/13/17 21:00 A/P Assessment and Plan 31yo with a history of psychosis and substance use admitted under Belcher act to inpatient psychiatry unit. Hospitalist services is consulted for rash/lesions on face, neck and back. Patient has history of MRSA. Psychosis, under Belcher Act -Management per psychiatric team Leukocytosis, resolved -white count trending up 14.7 -> 19.8 -Suspect reactive. Patient is afebrile. VSS. Does not appear septic. -UA unremarkable -CXR ordered and no acute process identified, images reviewed by me -influenza negative Rash, on face, neck, chest and back, suspect MRSA Hx of MRSA infection requiring I&D -MRSA screen negative -Continue on doxycycline BID x 14 days -Continue Bactroban twice a day to the anterior nares x 5 days at the beginning of each month per ID note 05/21/16. -Hibiclens baths daily Constipation -KUB shows moderate amount of stool t/o the colon, images reviewed by me -Miranda Colace 2 po now, then 1 po BID. Miralax x 1 dose now -Monitor for BM Polysubstance use -Urine drug screen positive for amphetamines and cannabis -encouraged cessation DVT prophylaxis -Patient is ambulatory Patient appears stable from hospitalist standpoint. Will sign off for now. Please reconsult if needed. Kimberlee Wilhelm Aug 13, 2017 11:52
[2017-08-13] MEDS ORDERED: OLANZapine IM 10 MG VIAL IM STA (12:00)
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
[2017-08-13 17:40] VITALS: BP 129/68; PULSE 85; RESP 18; TEMP 98.5; O2SAT 98
[2017-08-13 18:11] VITALS: BP 134/70; PULSE 87; RESP 18; TEMP 98.7; O2SAT 98
[2017-08-13] MEDS: diphenhydrAMINE HCL 50 MG CAP PO PRN (20:37)
[2017-08-13] MEDS: DOCUSATE SODIUM 50 MG/SENNA 8.6 MG TAB PO SCH (20:37)
[2017-08-13] MEDS: risperiDONE ODT 1 MG TAB PO SCH (21:00)
[2017-08-13 22:42] VITALS: BP 126/59; PULSE 67; RESP 17; TEMP 97.8; O2SAT 97
[2017-08-14 06:33] VITALS: BP 125/75; PULSE 79; RESP 16; TEMP 97.8; O2SAT 98
[2017-08-14] MEDS: risperiDONE ODT 1 MG TAB PO SCH ×2 (09:00→20:53)
[2017-08-14] MEDS: BENZTROPINE MESYLATE 1 MG TAB PO SCH ×2 (09:10→20:53)
[2017-08-14] MEDS: DOXYCYCLINE HYCLATE 100 MG TAB PO SCH ×2 (09:10→20:53)
[2017-08-14] MEDS: DOCUSATE SODIUM 50 MG/SENNA 8.6 MG TAB PO SCH ×2 (09:11→20:53)
[2017-08-14] MEDS: NICOTINE 21 MG/24 HR PATCH T-DERMAL PRN (10:26)
[2017-08-14 10:31] VITALS: BP 125/63; PULSE 101; RESP 19; TEMP 99.5; O2SAT 98
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
[2017-08-14 14:30] VITALS: BP 124/61; PULSE 95; RESP 19; TEMP 99; O2SAT 99
[2017-08-14 17:44] VITALS: BP 129/64; PULSE 97; RESP 18; TEMP 99.1; O2SAT 98
[2017-08-15 06:20] VITALS: BP 107/60; PULSE 77; RESP 18; TEMP 97.8; O2SAT 100
[2017-08-15] MEDS: BENZTROPINE MESYLATE 1 MG TAB PO SCH ×2 (09:00→20:58)
[2017-08-15] MEDS: DOCUSATE SODIUM 50 MG/SENNA 8.6 MG TAB PO SCH ×2 (09:00→20:58)
[2017-08-15] MEDS: DOXYCYCLINE HYCLATE 100 MG TAB PO SCH ×2 (09:00→20:58)
[2017-08-15] MEDS: CHLORHEXIDINE GLUCONATE 4% SOLN 120 ML BTL TOPICAL SCH (09:00)
[2017-08-15] MEDS: risperiDONE ODT 1 MG TAB PO SCH ×2 (09:00→20:58)
[2017-08-15] MEDS: NICOTINE 21 MG/24 HR PATCH T-DERMAL PRN (09:21)
[2017-08-15] MEDS: ACETAMINOPHEN 325 MG TAB PO PRN ×2 (11:18→17:41)
--- NOTE | 2017-08-15 12:01 | HHI.PYPN ---
Subjective Chief Complaint: Psychosis Remarks Pt seen and discussed with staff. He did ADLs today and attended [employer] [facility]. He has been compliant with medications and is tolerating them without side effects. Thought process is more organized No SI/HI Mental Status Examination Appearance: Appropriate Consciousness: Alert Orientation: Person, Place Motor Activity: Other (no motor abnormalities noted) Speech: Unremarkable Language: Adequate Fund of Knowledge: Adequate Attention and Concentration: Adequate Memory: Unremarkable Mood: Good Affect: Appropriate, Other Thought Process & Associations: Tangential Thought Content: Delusional Hallucination Type: None Delusion Type: Paranoid Suicidal Ideation: No (denies) Homicidal Ideation: No (denies) Insight: Poor Judgment: Poor Results Labs Date/Time Source Procedure Growth Status 08/12/17 15:45 Nasal Aspirate Influenza Types A,B Antigen (PEMA) - Final NEGATIVE FOR FLU A AND B ANTIGEN.... Complete Vitals/IOs Vital Signs Date Time Temp Pulse Resp B/P (MAP) Pulse Ox O2 Delivery O2 Flow Rate FiO2 08/15/17 06:20 97.8 77 18 107/60 (76) 100 Assessment & Plan Problem List: (1) Schizophrenia, paranoid type ICD Codes: F20.0 - Paranoid schizophrenia (2) Polysubstance abuse ICD Codes: F19.10 - Other psychoactive substance abuse, uncomplicated Assessment & Plan Continue current tx plan. Estimated LOS: days Justification for Cont. Inpt. risk of decompensation Request HC Surrog/Guard Advoc?: Yes Rebekah Pepe MD Aug 15, 2017 12:01
[2017-08-15 17:29] VITALS: BP 117/63; PULSE 91; RESP 18; TEMP 98.6; O2SAT 100
[2017-08-16 06:00] VITALS: BP 127/70; PULSE 87; RESP 17; TEMP 97.6; O2SAT 96
[2017-08-16 06:56] LABS: AUTOMATED NEUTROPHIL # 6.2 TH/MM3 (1.8-7.7); BASOPHIL % 0.4 % (0.0-2.0); EOSINOPHIL # 0.2 TH/MM3 (0-0.4); EOSINOPHIL % 2.4 % (0.0-4.0); HEMATOCRIT 42.7 % (39.0-51.0); HEMOGLOBIN 14.3 GM/DL (13.0-17.0); LYMPH % 24.3 % (9.0-44.0); LYMPHOCYTE # 2.4 TH/MM3 (1.0-4.8); MEAN CELL VOLUME 81.2 FL (80.0-100.0); MEAN CORPUSCULAR HEMOGLOBIN 27.1 PG (27.0-34.0); MEAN CORPUSCULAR HGB CONC 33.4 % (32.0-36.0); MEAN PLATELET VOLUME 8.7 FL (7.0-11.0); MONO % 9.1 % (0.0-8.0); MONOCYTE # 0.9 TH/MM3 (0-0.9); NEUT % 63.8 % (16.0-70.0); PLATELET COUNT 243 TH/MM3 (150-450); RED BLOOD COUNT 5.26 MIL/MM3 (4.50-5.90); RED CELL DISTRIBUTION WIDTH 14.6 % (11.6-17.2); WHITE BLOOD COUNT 9.8 TH/MM3 (4.0-11.0)
[2017-08-16] MEDS: risperiDONE ODT 1 MG TAB PO SCH ×2 (09:00→20:50)
[2017-08-16] MEDS: BENZTROPINE MESYLATE 1 MG TAB PO SCH ×2 (09:00→20:50)
[2017-08-16] MEDS: CHLORHEXIDINE GLUCONATE 4% SOLN 120 ML BTL TOPICAL SCH (09:00)
[2017-08-16] MEDS: DOCUSATE SODIUM 50 MG/SENNA 8.6 MG TAB PO SCH ×2 (09:32→20:50)
[2017-08-16] MEDS: DOXYCYCLINE HYCLATE 100 MG TAB PO SCH (09:33)
--- NOTE | 2017-08-16 12:41 | HHI.PYPN ---
Subjective Chief Complaint: Psychosis Remarks Reviewed electronic medical record and labs. White blood cell count and absolute neutrophil count are within normal limits after restarting patient on the Risperdal. Discussed case with staff[facility] Patient reports that he slept well last night his appetite has been good. He advises that he has gained weight while inpatient. His speech is clear, organized, and logical. He is neatly groomed today. He reports that his mom is visiting later this evening. When asked about the cameras in his house he responded, "I know they are there. Of course they bother me. But everybody gets upset when I bring them up, and if I talk about them though just keep me her longer." He goes on to state that if the government is watching him, he has nothing to hide and will just look at it as it is making him safer. His mood seems to be improved, although he did express discontent about still being inpatient he only brought it up once, and was less agitated. His affect was euthymic, and overall his anxiety level seems decreased. He did mention that he had spoken to his sister on the phone and "she told me that she loved me". He reports "being floored" by her saying this and states that he hopes this means that they will be able to get along. Patient denies any side effects from the medication. No motor abnormalities noticed. Mental Status Examination Appearance: Appropriate Consciousness: Alert Orientation: Person, Place Motor Activity: Other (no motor abnormalities noted) Speech: Unremarkable Language: Adequate Fund of Knowledge: Adequate Attention and Concentration: Adequate Memory: Unremarkable Mood: Good Affect: Appropriate, Euthymic, Other Thought Process & Associations: Intact Thought Content: Bizarre thinking, Delusional (states that he doesn't want to talk about them, because it "gets everyone upset and then they'll keep me here longer". ) Hallucination Type: None Delusion Type: Paranoid (still believes there are cameras, but states that he is no longer overly concerned about them.) Suicidal Ideation: No (denies) Suicidal Plan: No Suicidal Intention: No Homicidal Ideation: No (denies) Homicidal Plan: No Homicidal Intention: No Insight: Poor Judgment: Poor Results Labs Test 08/16/17 05:57 White Blood Count 9.8 TH/MM3 Red Blood Count 5.26 MIL/MM3 Hemoglobin 14.3 GM/DL Hematocrit 42.7 % Mean Corpuscular Volume 81.2 FL Mean Corpuscular Hemoglobin 27.1 PG Mean Corpuscular Hemoglobin Concent 33.4 % Red Cell Distribution Width 14.6 % Platelet Count 243 TH/MM3 Mean Platelet Volume 8.7 FL Neutrophils (%) (Auto) 63.8 % Lymphocytes (%) (Auto) 24.3 % Monocytes (%) (Auto) 9.1 % Eosinophils (%) (Auto) 2.4 % Basophils (%) (Auto) 0.4 % Neutrophils # (Auto) 6.2 TH/MM3 Lymphocytes # (Auto) 2.4 TH/MM3 Monocytes # (Auto) 0.9 TH/MM3 Eosinophils # (Auto) 0.2 TH/MM3 Basophils # (Auto) 0.0 TH/MM3 CBC Comment DIFF FINAL Differential Comment Date/Time Source Procedure Growth Status 08/12/17 15:45 Nasal Aspirate Influenza Types A,B Antigen (PEMA) - Final NEGATIVE FOR FLU A AND B ANTIGEN.... Complete Vitals/IOs Vital Signs Date Time Temp Pulse Resp B/P (MAP) Pulse Ox O2 Delivery O2 Flow Rate FiO2 08/16/17 06:00 97.6 87 17 127/70 (89) 96 Intake and Output 08/16/17 08/16/17 08/17/17 08:00 16:00 00:00 Intake Total 1100 ml Output Total 2 ml Balance 1098 ml Assessment & Plan Problem List: (1) Schizophrenia, paranoid type ICD Codes: F20.0 - Paranoid schizophrenia (2) Polysubstance abuse ICD Codes: F19.10 - Other psychoactive substance abuse, uncomplicated Assessment & Plan Estimated LOS: Patient's delusion remains fixed. Reported visit with mother took her this evening, will have counselor contact family after the meeting. Discharge planning in progress. Justification for Cont. Inpt. Moving this patient to a lower level of care at this time would likely result in decompensation. Request HC Surrog/Guard Advoc?: Yes Pratibha Grant Aug 16, 2017 12:41
[2017-08-16 17:16] VITALS: BP 148/68; PULSE 104; RESP 18; TEMP 98; O2SAT 98
[2017-08-17] MEDS: DOCUSATE SODIUM 50 MG/SENNA 8.6 MG TAB PO SCH ×2 (08:19→21:30)
[2017-08-17] MEDS: BENZTROPINE MESYLATE 1 MG TAB PO SCH ×2 (08:20→21:30)
[2017-08-17] MEDS: risperiDONE ODT 1 MG TAB PO SCH ×2 (08:20→21:30)
[2017-08-17] MEDS: CHLORHEXIDINE GLUCONATE 4% SOLN 120 ML BTL TOPICAL SCH ×2 (08:22→08:49)
--- NOTE | 2017-08-17 16:39 | HHI.PYPN ---
Subjective Chief Complaint: Psychosis Remarks Reviewed electronic medical record discussed case with staff. Follow-up was performed in [place] of unit. Patient really reports that he slept fairly well although he states, "there is a girl screaming all night". He advises that his appetite has been good. Had a visit with his mother yesterday which he states went "really well". Speech is clear, organized, logical. His delusions are still present although not as intense. He denies any side effects from the medication, other than "some dry mouth". Patient's mood is good, his affect is euthymic, and there are no outbursts. Discharge planning is in progress Mental Status Examination Appearance: Appropriate Consciousness: Alert Orientation: Person, Place, Date/Time Motor Activity: Other (no motor abnormalities noted) Speech: Unremarkable Language: Adequate Fund of Knowledge: Adequate Attention and Concentration: Adequate Memory: Unremarkable Mood: Good Affect: Appropriate, Euthymic, Other Thought Process & Associations: Intact Thought Content: Bizarre thinking, Delusional (states that he doesn't want to talk about them, because it "gets everyone upset and then they'll keep me here longer". ) Hallucination Type: None Delusion Type: Paranoid (still believes there are cameras, but states that he is no longer overly concerned about them.) Suicidal Ideation: No Suicidal Plan: No Suicidal Intention: No Homicidal Ideation: No Homicidal Plan: No Homicidal Intention: No Insight: Fair Judgment: Adequate Results Labs Date/Time Source Procedure Growth Status 08/12/17 15:45 Nasal Aspirate Influenza Types A,B Antigen (PEMA) - Final NEGATIVE FOR FLU A AND B ANTIGEN.... Complete Vitals/IOs Vital Signs Date Time Temp Pulse Resp B/P (MAP) Pulse Ox O2 Delivery O2 Flow Rate FiO2 08/16/17 17:16 98.0 104 18 148/68 (94) 98 Assessment & Plan Problem List: (1) Schizophrenia, paranoid type ICD Codes: F20.0 - Paranoid schizophrenia (2) Polysubstance abuse ICD Codes: F19.10 - Other psychoactive substance abuse, uncomplicated Assessment & Plan Estimated LOS: Patient seems to be making progress with his mood and affect. His delusions continues to be fixed however, he does not appear to be as distressed about them. His counselor will begin working on a safe discharge plan with follow-up outpatient treatment. I will discuss a long-term injectable with patient tomorrow, to address his sister's concern of him coming home. Justification for Cont. Inpt. Lower level of care would likely result in patient's decompensation at this time. A safe discharge plan is in progress. Request HC Surrog/Guard Advoc?: Yes Pratibha Grant Aug 17, 2017 16:39
[2017-08-17 18:15] VITALS: BP 122/68; PULSE 80; RESP 18; TEMP 98.3; O2SAT 97
[2017-08-17] MEDS: diphenhydrAMINE HCL 50 MG CAP PO PRN (21:30)
[2017-08-18 06:01] VITALS: BP 112/62; PULSE 71; RESP 16; TEMP 97.7; O2SAT 99
[2017-08-18] MEDS: DOCUSATE SODIUM 50 MG/SENNA 8.6 MG TAB PO SCH ×2 (08:52→21:06)
[2017-08-18] MEDS: BENZTROPINE MESYLATE 1 MG TAB PO SCH ×2 (08:52→21:06)
[2017-08-18] MEDS: risperiDONE ODT 1 MG TAB PO SCH ×2 (08:53→21:00)
[2017-08-18] MEDS: CHLORHEXIDINE GLUCONATE 4% SOLN 120 ML BTL TOPICAL SCH (08:55)
--- NOTE | 2017-08-18 15:41 | HHI.PYPN ---
Subjective Chief Complaint: Psychosis Remarks Patient seen for follow up; chart reviewed. Nursing staff reported that the patient denying any suicidal ideation with no complaints at this time. Patient was found sitting on hospital bed calm and cooperative. He states that he has a feeling "good" denies any adverse drug reaction from medications. When asked about previous paranoid ideations of the government and cameras watching him patient became guarded and reserved with elaborating on this topic. Patient states that he was visited by his mom and sister and thinks that his sister is "a troublemaker" and that she is out there to control him. He mentioned that he plans on moving away from his sister along with his mother. Patient focused on discharge. Review of Systems Except as stated in HPI: all other systems reviewed are Neg Mental Status Examination Appearance: Appropriate Consciousness: Alert Orientation: Person, Place, Date/Time Motor Activity: Other (no motor abnormalities noted) Speech: Unremarkable Language: Adequate Fund of Knowledge: Adequate Attention and Concentration: Adequate Memory: Unremarkable Mood: Good Affect: Appropriate, Euthymic, Other Thought Process & Associations: Intact Thought Content: Bizarre thinking, Delusional (states that he doesn't want to talk about them, because it "gets everyone upset and then they'll keep me here longer". ) Hallucination Type: None Delusion Type: Paranoid (still believes there are cameras, but states that he is no longer overly concerned about them.) Suicidal Ideation: No Suicidal Plan: No Suicidal Intention: No Homicidal Ideation: No Homicidal Plan: No Homicidal Intention: No Insight: Fair Judgment: Adequate Results Labs Date/Time Source Procedure Growth Status 08/12/17 15:45 Nasal Aspirate Influenza Types A,B Antigen (PEMA) - Final NEGATIVE FOR FLU A AND B ANTIGEN.... Complete Vitals/IOs Vital Signs Date Time Temp Pulse Resp B/P (MAP) Pulse Ox O2 Delivery O2 Flow Rate FiO2 08/18/17 06:01 97.7 71 16 112/62 (79) 99 Intake and Output 08/18/17 08/18/17 08/19/17 08:00 16:00 00:00 Intake Total 360 ml Balance 360 ml Assessment & Plan Problem List: (1) Schizophrenia, paranoid type ICD Codes: F20.0 - Paranoid schizophrenia (2) Polysubstance abuse ICD Codes: F19.10 - Other psychoactive substance abuse, uncomplicated Assessment & Plan Patient this time noted to be guarded and although did not elaborate on paranoid delusions it appears the patient was reluctant to endorse or deny. Patient also continues with thoughts that his sister is against him, discharge focused. We will continue current treatment. Continue to monitor mood and behavior. Collateral formation pending from family. Discharge planning in progress Justification for Cont. Inpt. At risk of further decompensation at lower level of care Discharge Planning To be determined Request HC Surrog/Guard Advoc?: Yes J Luis Mao MD Aug 18, 2017 15:41
[2017-08-18 18:07] VITALS: BP 128/72; PULSE 94; RESP 18; TEMP 97.8; O2SAT 98
[2017-08-18] MEDS: diphenhydrAMINE HCL 50 MG CAP PO PRN (21:06)
[2017-08-19 05:17] VITALS: BP 111/56; PULSE 72; RESP 16; TEMP 97.6; O2SAT 99
[2017-08-19 07:20] LABS: AUTOMATED NEUTROPHIL # 8.7 TH/MM3 (1.8-7.7); BASOPHIL % 0.4 % (0.0-2.0); EOSINOPHIL # 0.3 TH/MM3 (0-0.4); EOSINOPHIL % 2.1 % (0.0-4.0); HEMATOCRIT 41.9 % (39.0-51.0); HEMOGLOBIN 13.9 GM/DL (13.0-17.0); LYMPH % 18.8 % (9.0-44.0); LYMPHOCYTE # 2.3 TH/MM3 (1.0-4.8); MEAN CELL VOLUME 81.6 FL (80.0-100.0); MEAN CORPUSCULAR HEMOGLOBIN 27.1 PG (27.0-34.0); MEAN CORPUSCULAR HGB CONC 33.2 % (32.0-36.0); MEAN PLATELET VOLUME 8.6 FL (7.0-11.0); MONO % 8.1 % (0.0-8.0); NEUT % 70.6 % (16.0-70.0); PLATELET COUNT 255 TH/MM3 (150-450); RED BLOOD COUNT 5.14 MIL/MM3 (4.50-5.90); RED CELL DISTRIBUTION WIDTH 14.4 % (11.6-17.2); WHITE BLOOD COUNT 12.3 TH/MM3 (4.0-11.0)
[2017-08-19] MEDS: DOCUSATE SODIUM 50 MG/SENNA 8.6 MG TAB PO SCH ×2 (08:48→21:05)
[2017-08-19] MEDS: BENZTROPINE MESYLATE 1 MG TAB PO SCH ×2 (08:48→21:05)
[2017-08-19] MEDS: risperiDONE ODT 1 MG TAB PO SCH (08:49)
[2017-08-19] MEDS: CHLORHEXIDINE GLUCONATE 4% SOLN 120 ML BTL TOPICAL SCH (09:00)
--- NOTE | 2017-08-19 12:23 | HHI.PYPN ---
Subjective Chief Complaint: Psychosis Remarks Patient seen for follow up; chart reviewed. Discussion nursing staff reported the patient had endorsed some paranoid ideation and delusions last evening and that the government was out to get him but denied any this morning. Patient was found lying hospital bed noted, cooperative. Patient was noted to be guarded in regards to his delusions but did state that his sister has always been a problem that prior to his admission he had found a camera and listening devices that he believes is pissed sister had put in his side of the duplex apartment. He states that he had found a listening device in the toilet and that he had collected these items for evidence. He states that recently he had been making her medication with his sister over the phone and that things have been getting better and had started to color a picture symbolizing piece that he plans to give to her. Mentions that his mother wants him to be able to come home and the plan is that she will put the place up for sale and he would like to be able to move away from his sister. Patient states that he slept well, his mood has been "good" stating that he has not been having mood swings Review of Systems Except as stated in HPI: all other systems reviewed are Neg Mental Status Examination Appearance: Appropriate Consciousness: Alert Orientation: Person, Place, Date/Time Motor Activity: Other (no motor abnormalities noted) Speech: Unremarkable Language: Adequate Fund of Knowledge: Adequate Attention and Concentration: Adequate Memory: Unremarkable Mood: Good Affect: Appropriate, Euthymic, Other Thought Process & Associations: Intact Thought Content: Bizarre thinking, Delusional (states that he doesn't want to talk about them, because it "gets everyone upset and then they'll keep me here longer". ) Hallucination Type: None Delusion Type: Paranoid (still believes there are cameras, but states that he is no longer overly concerned about them.) Suicidal Ideation: No Suicidal Plan: No Suicidal Intention: No Homicidal Ideation: No Homicidal Plan: No Homicidal Intention: No Insight: Fair Judgment: Impulsive Results Labs Labs reviewed Test 08/19/17 06:37 White Blood Count 12.3 TH/MM3 Red Blood Count 5.14 MIL/MM3 Hemoglobin 13.9 GM/DL Hematocrit 41.9 % Mean Corpuscular Volume 81.6 FL Mean Corpuscular Hemoglobin 27.1 PG Mean Corpuscular Hemoglobin Concent 33.2 % Red Cell Distribution Width 14.4 % Platelet Count 255 TH/MM3 Mean Platelet Volume 8.6 FL Neutrophils (%) (Auto) 70.6 % Lymphocytes (%) (Auto) 18.8 % Monocytes (%) (Auto) 8.1 % Eosinophils (%) (Auto) 2.1 % Basophils (%) (Auto) 0.4 % Neutrophils # (Auto) 8.7 TH/MM3 Lymphocytes # (Auto) 2.3 TH/MM3 Monocytes # (Auto) 1.0 TH/MM3 Eosinophils # (Auto) 0.3 TH/MM3 Basophils # (Auto) 0.0 TH/MM3 CBC Comment DIFF FINAL Differential Comment Date/Time Source Procedure Growth Status 08/12/17 15:45 Nasal Aspirate Influenza Types A,B Antigen (PEMA) - Final NEGATIVE FOR FLU A AND B ANTIGEN.... Complete Vitals/IOs Vital Signs Date Time Temp Pulse Resp B/P (MAP) Pulse Ox O2 Delivery O2 Flow Rate FiO2 08/19/17 05:17 97.6 72 16 111/56 (74) 99 Intake and Output 08/19/17 08/19/17 08/20/17 08:00 16:00 00:00 Output Total 1 ml Balance -1 ml Assessment & Plan Problem List: (1) Schizophrenia, paranoid type ICD Codes: F20.0 - Paranoid schizophrenia (2) Polysubstance abuse ICD Codes: F19.10 - Other psychoactive substance abuse, uncomplicated Assessment & Plan Patient this time continues to endorse paranoid and persecutory delusions from his sister. Patient states planning a continue treatment upon discharge and that his mother would like for him to come home. Patient did not mention paranoia from the government but was endorsed to nursing staff last evening. We will increase risperidone to 1 mg a.m. and 2 mg at bedtime for psychosis. Continue monitor with behavior. Collateral formation pending from sister and mother. Discharge planning in progress. Justification for Cont. Inpt. At risk of further decompensation at lower level of care Discharge Planning To be determined Request HC Surrog/Guard Advoc?: Yes J Luis Mao MD Aug 19, 2017 12:23
[2017-08-19 18:24] VITALS: BP 139/74; PULSE 91; RESP 18; TEMP 97.5; O2SAT 97
[2017-08-19] MEDS: risperiDONE ODT 2 MG TAB PO SCH (21:05)
[2017-08-19] MEDS: diphenhydrAMINE HCL 50 MG CAP PO PRN (21:05)
[2017-08-20 05:35] VITALS: BP 121/66; PULSE 76; RESP 16; TEMP 97.8; O2SAT 98
[2017-08-20] MEDS: BENZTROPINE MESYLATE 1 MG TAB PO SCH ×2 (08:37→21:12)
[2017-08-20] MEDS: DOCUSATE SODIUM 50 MG/SENNA 8.6 MG TAB PO SCH ×2 (08:37→21:12)
[2017-08-20] MEDS: risperiDONE ODT 1 MG TAB PO SCH (08:38)
[2017-08-20] MEDS: CHLORHEXIDINE GLUCONATE 4% SOLN 120 ML BTL TOPICAL SCH (09:00)
--- NOTE | 2017-08-20 16:36 | HHI.PYPN ---
Subjective Chief Complaint: Psychosis Remarks Patient seen for follow, chart reviewed. Discussion nursing staff reported the patient continues to think that his mother's sister is against him has been compliant with medications and attending groups. Patient was found participating group notably, cooperative. Patient states that he has been feeling "okay" somewhat perseverative on discharge stated that he would like to go home as he misses his family. Patient states he has spoken with her mother who wants patient to return back home but also states had been in contact with a sister who has expressed to him that she misses him. Patient appears to be in conflict with his delusions of his sister against him along with recent interactions which have been supportive and enduring to him from his sister. He states that he wants his family be together but the same time reporting that he plans to move away from his sister. Patient denies any perceptual disturbances but continues to have paranoid delusions. Review of Systems Except as stated in HPI: all other systems reviewed are Neg Mental Status Examination Appearance: Appropriate Consciousness: Alert Orientation: Person, Place, Date/Time Motor Activity: Other (no motor abnormalities noted) Speech: Unremarkable Language: Adequate Fund of Knowledge: Adequate Attention and Concentration: Adequate Memory: Unremarkable Mood: Good Affect: Appropriate, Euthymic, Other Thought Process & Associations: Intact Thought Content: Bizarre thinking, Delusional (states that he doesn't want to talk about them, because it "gets everyone upset and then they'll keep me here longer". ) Hallucination Type: None Delusion Type: Paranoid (still believes there are cameras, but states that he is no longer overly concerned about them.) Suicidal Ideation: No Suicidal Plan: No Suicidal Intention: No Homicidal Ideation: No Homicidal Plan: No Homicidal Intention: No Insight: Fair Judgment: Impulsive Results Labs Date/Time Source Procedure Growth Status 08/12/17 15:45 Nasal Aspirate Influenza Types A,B Antigen (PEMA) - Final NEGATIVE FOR FLU A AND B ANTIGEN.... Complete Vitals/IOs Vital Signs Date Time Temp Pulse Resp B/P (MAP) Pulse Ox O2 Delivery O2 Flow Rate FiO2 08/20/17 05:35 97.8 76 16 121/66 (84) 98 Assessment & Plan Problem List: (1) Schizophrenia, paranoid type ICD Codes: F20.0 - Paranoid schizophrenia (2) Polysubstance abuse ICD Codes: F19.10 - Other psychoactive substance abuse, uncomplicated Assessment & Plan Patient this time continues to endorse some paranoia particularly if that his sister is against him. He states that he has feelings support from sister recently but continues to be suspicious continue with thoughts that she is against him. Risperidone recently increased to 1 mg a.m., 2 mg at bedtime. Continue monitor mood and behavior. Collateral information pending from sister. Discharge planning in progress. Justification for Cont. Inpt. At risk of further decompensation a lower level of care Discharge Planning state hospital referral Request HC Surrog/Guard Advoc?: Yes J Luis Mao MD Aug 20, 2017 16:36
[2017-08-20 18:00] VITALS: BP 135/76; PULSE 104; RESP 16; TEMP 98; O2SAT 97
[2017-08-20] MEDS: risperiDONE ODT 2 MG TAB PO SCH (21:12)
[2017-08-21 05:22] VITALS: BP 135/72; PULSE 76; RESP 18; TEMP 97.4; O2SAT 100
[2017-08-21 05:25] VITALS: BP 112/68; PULSE 76; RESP 18; TEMP 97.4; O2SAT 100
[2017-08-21] MEDS: risperiDONE ODT 1 MG TAB PO SCH (08:48)
[2017-08-21] MEDS: DOCUSATE SODIUM 50 MG/SENNA 8.6 MG TAB PO SCH ×2 (08:48→21:00)
[2017-08-21] MEDS: BENZTROPINE MESYLATE 1 MG TAB PO SCH ×2 (08:48→21:00)
--- NOTE | 2017-08-21 14:16 | HHI.PYPN ---
Subjective Chief Complaint: Psychosis Remarks Patient was seen and case discussed with nursing. Patient is not cooperative. He is guarded with poor eye contact and irritable mood. He feels annoyed when asked about a psychosis and says "my sister is a fucking bitch." Denies suicidal or homicidal ideations intent or plan. No outbursts Mental Status Examination Appearance: Appropriate Consciousness: Alert Orientation: Person, Place, Date/Time Motor Activity: Other (no motor abnormalities noted) Speech: Unremarkable Language: Adequate Fund of Knowledge: Adequate Attention and Concentration: Adequate Memory: Unremarkable Mood: Good Affect: Appropriate, Euthymic, Other Thought Process & Associations: Intact Thought Content: Bizarre thinking, Delusional (states that he doesn't want to talk about them, because it "gets everyone upset and then they'll keep me here longer". ) Hallucination Type: None Delusion Type: Paranoid (still believes there are cameras, but states that he is no longer overly concerned about them.) Suicidal Ideation: No Suicidal Plan: No Suicidal Intention: No Homicidal Ideation: No Homicidal Plan: No Homicidal Intention: No Insight: Fair Judgment: Impulsive Results Labs Date/Time Source Procedure Growth Status 08/12/17 15:45 Nasal Aspirate Influenza Types A,B Antigen (PEMA) - Final NEGATIVE FOR FLU A AND B ANTIGEN.... Complete Vitals/IOs Vital Signs Date Time Temp Pulse Resp B/P (MAP) Pulse Ox O2 Delivery O2 Flow Rate FiO2 08/21/17 05:25 97.4 76 18 112/68 (83) 100 Intake and Output 08/21/17 08/21/17 08/22/17 08:00 16:00 00:00 Intake Total 1100 ml Balance 1100 ml Assessment & Plan Problem List: (1) Schizophrenia, paranoid type ICD Codes: F20.0 - Paranoid schizophrenia (2) Polysubstance abuse ICD Codes: F19.10 - Other psychoactive substance abuse, uncomplicated Assessment & Plan Continue current treatment plan Justification for Cont. Inpt. Patient will decompensate in a less restrictive setting Request HC Surrog/Guard Advoc?: Yes Ravin Freeman DO Aug 21, 2017 14:16
[2017-08-21] MEDS: ACETAMINOPHEN 325 MG TAB PO PRN (18:02)
[2017-08-21 19:30] VITALS: BP 136/75; PULSE 90; RESP 18; TEMP 98.7; O2SAT 99
[2017-08-21] MEDS: CHLORHEXIDINE GLUCONATE 4% SOLN 120 ML BTL TOPICAL SCH (19:30)
[2017-08-21] MEDS: risperiDONE ODT 2 MG TAB PO SCH (21:00)
[2017-08-22] MEDS: CHLORHEXIDINE GLUCONATE 4% SOLN 120 ML BTL TOPICAL SCH (09:00)
--- NOTE | 2017-08-22 09:36 | HHI.PYPN ---
Subjective Chief Complaint: Psychosis Remarks Patient was seen and case discussed with nursing. Patient believes that his psychosis was secondary to drugs. When asked about vigilantes or computers patient says "that is all in the past." He is looking forward to fixing his house. His compliant with his medications a well on the unit. Collateral was obtained from nursing per nursing patient continues to make bizarre delusional statements. Patient believes that vigilantes are monitoring his house he is wanting to electrical wires Mental Status Examination Appearance: Appropriate Consciousness: Alert Orientation: Person, Place, Date/Time Motor Activity: Other (no motor abnormalities noted) Speech: Unremarkable Language: Adequate Fund of Knowledge: Adequate Attention and Concentration: Adequate Memory: Unremarkable Mood: Good Affect: Appropriate, Euthymic, Other Thought Process & Associations: Intact Thought Content: Appropriate, Bizarre thinking, Delusional (states that he doesn't want to talk about them, because it "gets everyone upset and then they' ll keep me here longer". ) Hallucination Type: None Delusion Type: Paranoid (still believes there are cameras, but states that he is no longer overly concerned about them.) Suicidal Ideation: No Suicidal Plan: No Suicidal Intention: No Homicidal Ideation: No Homicidal Plan: No Homicidal Intention: No Insight: Fair Judgment: Impulsive Results Labs Date/Time Source Procedure Growth Status 08/12/17 15:45 Nasal Aspirate Influenza Types A,B Antigen (PEMA) - Final NEGATIVE FOR FLU A AND B ANTIGEN.... Complete Vitals/IOs Vital Signs Date Time Temp Pulse Resp B/P (MAP) Pulse Ox O2 Delivery O2 Flow Rate FiO2 08/21/17 19:30 98.7 90 18 136/75 (95) 99 Intake and Output 08/22/17 08/22/17 08/22/17 07:59 15:59 23:59 Intake Total 550 ml 360 ml Balance 550 ml 360 ml Assessment & Plan Problem List: (1) Schizophrenia, paranoid type ICD Codes: F20.0 - Paranoid schizophrenia (2) Polysubstance abuse ICD Codes: F19.10 - Other psychoactive substance abuse, uncomplicated Assessment & Plan Continue current treatment plan Justification for Cont. Inpt. Patient will decompensate in a less restrictive setting Request HC Surrog/Guard Advoc?: Yes Ravin Freeman DO Aug 22, 2017 09:36
[2017-08-22] MEDS: BENZTROPINE MESYLATE 1 MG TAB PO SCH ×2 (09:59→21:00)
[2017-08-22] MEDS: risperiDONE ODT 1 MG TAB PO SCH (09:59)
[2017-08-22] MEDS: DOCUSATE SODIUM 50 MG/SENNA 8.6 MG TAB PO SCH ×2 (10:00→20:49)
[2017-08-22] MEDS: ACETAMINOPHEN 325 MG TAB PO PRN ×2 (13:35→20:48)
[2017-08-22 16:52] VITALS: BP 112/63; PULSE 77; RESP 18; TEMP 98.1; O2SAT 97
[2017-08-22 18:15] VITALS: BP 115/59; PULSE 83; RESP 16; TEMP 98; O2SAT 97
[2017-08-22] MEDS: diphenhydrAMINE HCL 50 MG CAP PO PRN (20:48)
[2017-08-22] MEDS: risperiDONE ODT 2 MG TAB PO SCH (20:50)
[2017-08-23 06:53] VITALS: BP 123/59; PULSE 73; RESP 17; TEMP 98.1; O2SAT 98
[2017-08-23] MEDS: DOCUSATE SODIUM 50 MG/SENNA 8.6 MG TAB PO SCH ×2 (08:35→20:06)
[2017-08-23] MEDS: BENZTROPINE MESYLATE 1 MG TAB PO SCH ×2 (08:35→20:06)
[2017-08-23] MEDS: risperiDONE ODT 1 MG TAB PO SCH (08:36)
[2017-08-23] MEDS: CHLORHEXIDINE GLUCONATE 4% SOLN 120 ML BTL TOPICAL SCH (08:36)
--- NOTE | 2017-08-23 17:16 | HHI.PYPN ---
Subjective Chief Complaint: Psychosis Remarks Patient seen for follow, chart reviewed. Discussion nursing staff reported the patient B, cooperative, participating groups. Patient was found ambulating on the unit are to become cooperative. Patient states that he has spoken with his sister over the weekend to have her come visit and states that she refused to come. Patient continues to endorse that he believed there were "a vigilante group" that was monitoring him and after him and that these people are usually after people use drugs. Patient states that he is no longer using drugs and therefore is "worried about them anymore". Patient continues to endorse that his sister has been monitoring him and that he has evidence in his home of his monitoring devices. Patient mentions that his mother would like for him to come home and has no concerns for him returning there but that his sister continues to be reluctant and that she continues to be a source of his conflict. Review of Systems Except as stated in HPI: all other systems reviewed are Neg Mental Status Examination Appearance: Appropriate Consciousness: Alert Orientation: Person, Place, Date/Time Motor Activity: Other (no motor abnormalities noted) Speech: Unremarkable Language: Adequate Fund of Knowledge: Adequate Attention and Concentration: Adequate Memory: Unremarkable Mood: Good Affect: Appropriate, Euthymic, Other Thought Process & Associations: Intact Thought Content: Appropriate, Bizarre thinking, Delusional (Continue to believe that the sister source of his problems, monitoring him as well as a "vigilante group "for people who use drugs.) Hallucination Type: None Delusion Type: Paranoid (still believes there are cameras, but states that he is no longer overly concerned about them.) Suicidal Ideation: No Suicidal Plan: No Suicidal Intention: No Homicidal Ideation: No Homicidal Plan: No Homicidal Intention: No Insight: Fair Judgment: Impulsive Results Labs Date/Time Source Procedure Growth Status 08/12/17 15:45 Nasal Aspirate Influenza Types A,B Antigen (PEMA) - Final NEGATIVE FOR FLU A AND B ANTIGEN.... Complete Vitals/IOs Vital Signs Date Time Temp Pulse Resp B/P (MAP) Pulse Ox O2 Delivery O2 Flow Rate FiO2 08/23/17 06:53 98.1 73 17 123/59 (80) 98 Assessment & Plan Problem List: (1) Schizophrenia, paranoid type ICD Codes: F20.0 - Paranoid schizophrenia (2) Polysubstance abuse ICD Codes: F19.10 - Other psychoactive substance abuse, uncomplicated Assessment & Plan Patient this time continues to have some delusional thinking about vigilante groups monitoring people use drugs but states he has no longer concerned with that as he manages wanting to stay away from drugs from now on. He continues to have paranoid delusions about his sister. We will increase risperidone to 2 mg p.o. twice daily for psychosis. Will have family meeting with mother tomorrow to meet with treatment team and discuss possibility of patient returning home. Patient's sister refuses to come visit the patient or meet for family meeting. We will continue to monitor mood and behavior. Discharge planning in progress. Justification for Cont. Inpt. At risk of further decompensation at lower level of care. Discharge Planning To be determined. Request HC Surrog/Guard Advoc?: Yes J Luis Mao MD Aug 23, 2017 17:16
[2017-08-23 17:43] VITALS: BP 129/78; PULSE 87; RESP 16; TEMP 97.8; O2SAT 99
[2017-08-23] MEDS: ACETAMINOPHEN 325 MG TAB PO PRN (18:04)
[2017-08-23] MEDS: risperiDONE ODT 2 MG TAB PO SCH (20:06)
[2017-08-24 05:46] VITALS: BP 117/66; PULSE 84; RESP 16; TEMP 98; O2SAT 97
[2017-08-24] MEDS: BENZTROPINE MESYLATE 1 MG TAB PO SCH ×2 (08:38→20:36)
[2017-08-24] MEDS: DOCUSATE SODIUM 50 MG/SENNA 8.6 MG TAB PO SCH ×2 (08:38→20:36)
[2017-08-24] MEDS: risperiDONE ODT 2 MG TAB PO SCH ×2 (08:39→20:36)
[2017-08-24] MEDS: CHLORHEXIDINE GLUCONATE 4% SOLN 120 ML BTL TOPICAL SCH (09:00)
[2017-08-24] MEDS ORDERED: risperiDONE EXT REL INJ 37.5 MG/2 ML VIAL IM SCH (14:00)
--- NOTE | 2017-08-24 14:06 | HHI.PYPN ---
Subjective Chief Complaint: Psychosis Remarks Patient seen for follow, chart reviewed. Nursing staff reported the patient at times will be talking to self, participating effectively groups. Patient was found participating in group notably, cooperative. Patient states he is feeling "fine" states that he is continuously in contact with his family wants him home particularly his mother. Patient continues to speak about relation discord he had with his sister since there were children but states that he is willing to continue to be supportive care for his sister. Patient agrees to go to rehabilitation program or any groups upon discharge as well as engage with continued outpatient follow-up with psychiatrist. Patient agreed to long- acting injectable to assist with compliance and adherence to treatment. Car Pick Up Driver an therapist met with patient's mother who states that she had been visiting with her son frequently has no safety concerns with him returning back home but was aware of patient's symptoms prior to his admission. She states that she is willing to be supportive and overseeing his adherence to treatment and to participate actively in his follow-up. Review of Systems Except as stated in HPI: all other systems reviewed are Neg Mental Status Examination Appearance: Appropriate Consciousness: Alert Orientation: Person, Place, Date/Time Motor Activity: Other (no motor abnormalities noted) Speech: Unremarkable Language: Adequate Fund of Knowledge: Adequate Attention and Concentration: Adequate Memory: Unremarkable Mood: Good Affect: Appropriate, Euthymic, Other Thought Process & Associations: Intact Thought Content: Appropriate, Bizarre thinking, Delusional (Continue to believe that the sister source of his problems, monitoring him as well as a "vigilante group "for people who use drugs.) Hallucination Type: None Delusion Type: Paranoid (still believes there are cameras, but states that he is no longer overly concerned about them.) Suicidal Ideation: No Suicidal Plan: No Suicidal Intention: No Homicidal Ideation: No Homicidal Plan: No Homicidal Intention: No Insight: Fair Judgment: Impulsive Results Labs Date/Time Source Procedure Growth Status 08/12/17 15:45 Nasal Aspirate Influenza Types A,B Antigen (PEMA) - Final NEGATIVE FOR FLU A AND B ANTIGEN.... Complete Vitals/IOs Vital Signs Date Time Temp Pulse Resp B/P (MAP) Pulse Ox O2 Delivery O2 Flow Rate FiO2 08/24/17 05:46 98.0 84 16 117/66 (83) 97 Assessment & Plan Problem List: (1) Schizophrenia, paranoid type ICD Codes: F20.0 - Paranoid schizophrenia (2) Polysubstance abuse ICD Codes: F19.10 - Other psychoactive substance abuse, uncomplicated Assessment & Plan Patient this time noted to have less perseveration on delusions, continues to have some paranoid ideations but less intense. We will continue risperidone 2 mg p.o. twice daily for psychosis, patient given Risperdal Consta 37.5 mg IM 1 with repeat every 14 days. Continue rest of medications. Discharge planning in process. Justification for Cont. Inpt. At risk for further decompensation if at lower level of care Discharge Planning Patient to return home. Request HC Surrog/Guard Advoc?: Yes J Luis Mao MD Aug 24, 2017 14:06
[2017-08-24 18:16] VITALS: BP 111/67; PULSE 75; RESP 18; TEMP 98.1; O2SAT 97
[2017-08-25 06:00] VITALS: BP 110/54; PULSE 67; RESP 18; TEMP 97.3; O2SAT 97
[2017-08-25] MEDS: DOCUSATE SODIUM 50 MG/SENNA 8.6 MG TAB PO SCH ×2 (08:26→21:05)
[2017-08-25] MEDS: BENZTROPINE MESYLATE 1 MG TAB PO SCH ×2 (08:26→21:05)
[2017-08-25] MEDS: risperiDONE ODT 2 MG TAB PO SCH ×2 (08:26→21:06)
[2017-08-25] MEDS: CHLORHEXIDINE GLUCONATE 4% SOLN 120 ML BTL TOPICAL SCH ×2 (08:27→09:00)
--- NOTE | 2017-08-25 13:45 | PD.TTN ---
Patient Problems 1. Discharge planning 2. Medication compliance 3. Knowledge deficit 4. Lack of coping skills Progress Toward Goals Provider Present: Dr. Abundio Mao Provider Input: 08/23/2017; Patient has been switch to a long acting injection and will be dc by of this week 08/13/2017: First episode, needs medication, needs stabilization, State referral. 08/10/2017: patient continues to be delusional and requires medication and mood stablizing Nurse(s) Present: DAIANA Gaines Nurse(s) Input: 08/23/2017; patient is unit appropriate behavior, eating meals, and compliant with medication 08/10/2017; patient requires coaching and prompting with medication and mood Psychiatric Counselors Present: HAO Mohr Psych Therapist Input: 08/23/2017; patient will be dc home with mother with an outpatient provider 08/10/2017; State package will be submitted to the State Group Spec/RT/OT/HUNTER Present: Maria D Sam, GPS, Jim Farmer, OT, Silvino Dobbs, HUNTER Group Spec/RT/OT/HUNTER Input: 08/23/2017; patient is an excellent group participate 08/13/2017: Patient has been attending select group activities. Guarded and suspicious. 08/10/2017; patient comes to select groups with no participation Discharge Plan 08/13/2017: Referral to [facility] Documentation Scribe: Savanah Vivar ZHANNA Aug 25, 2017 13:45
--- NOTE | 2017-08-25 15:58 | HHI.PYPN ---
Subjective Chief Complaint: Psychosis Remarks Patient seen for follow-up, chart reviewed. Discussion she staff reported the patient has been doing well on the unit, cooperative with staff compliant with medications. Patient was found participating group noted, cooperative. Patient states he had tolerated the Risperdal Consta without any noted side effects and continues to be compliant with treatment. Patient stated he is ready to go home has become medication with his family stating that he will will do his best to try to improve his relation with his sister but also states being motivated to continue his treatment to do well that he can live his life peacefully with his family. Patient also endorses being motivated to engage in rehabilitation for substance use which she states had been assisted through Gustavo [place] coordinator increase consistency of attendance to the program. Patient this time denies any perceptual disturbances and denied endorse any delusions today. Review of Systems Except as stated in HPI: all other systems reviewed are Neg Mental Status Examination Appearance: Appropriate Consciousness: Alert Orientation: Person, Place, Date/Time Motor Activity: Other (no motor abnormalities noted) Speech: Unremarkable Language: Adequate Fund of Knowledge: Adequate Attention and Concentration: Adequate Memory: Unremarkable Mood: Good Affect: Appropriate, Euthymic, Other Thought Process & Associations: Intact Thought Content: Appropriate, Delusional (less intense) Hallucination Type: None Delusion Type: Paranoid (less intense) Suicidal Ideation: No Suicidal Plan: No Suicidal Intention: No Homicidal Ideation: No Homicidal Plan: No Homicidal Intention: No Insight: Fair Judgment: Impulsive Results Labs Date/Time Source Procedure Growth Status 08/12/17 15:45 Nasal Aspirate Influenza Types A,B Antigen (PEMA) - Final NEGATIVE FOR FLU A AND B ANTIGEN.... Complete Vitals/IOs Vital Signs Date Time Temp Pulse Resp B/P (MAP) Pulse Ox O2 Delivery O2 Flow Rate FiO2 08/25/17 06:00 97.3 67 18 110/54 (72) 97 Assessment & Plan Problem List: (1) Schizophrenia, paranoid type ICD Codes: F20.0 - Paranoid schizophrenia (2) Polysubstance abuse ICD Codes: F19.10 - Other psychoactive substance abuse, uncomplicated Assessment & Plan Patient at this time noted a significant decrease in delusions, with improved insight and adherence treatment. Patient tolerated risperidone consta 37.5mg IM well, continues to deny any adverse drug reactions. We'll continue current treatment. Patient likely discharge tomorrow as meeting with family earlier this week had reviewed the importance of adherence and supported by family to assure the patient continues with his outpatient follow-up. Continue monitoring behavior. Discharge planning in progress. Justification for Cont. Inpt. At risk for the composition lower level of care. Discharge Planning Patient likely be discharged back to his residence and family tomorrow. Request HC Surrog/Guard Advoc?: Yes J Luis Mao MD Aug 25, 2017 15:58
[2017-08-25 17:19] VITALS: BP 121/58; PULSE 86; RESP 17; TEMP 98.1; O2SAT 97
[2017-08-26 05:27] VITALS: BP 104/57; PULSE 66; RESP 17; TEMP 97.6; O2SAT 98
[2017-08-26] MEDS: CHLORHEXIDINE GLUCONATE 4% SOLN 120 ML BTL TOPICAL SCH (08:51)
[2017-08-26] MEDS: BENZTROPINE MESYLATE 1 MG TAB PO SCH (08:51)
[2017-08-26] MEDS: risperiDONE ODT 2 MG TAB PO SCH (08:51)
[2017-08-26] MEDS: DOCUSATE SODIUM 50 MG/SENNA 8.6 MG TAB PO SCH (08:51)
[2017-08-26] MEDS ORDERED: RISP37.5P IM (10:11)
[2017-08-26] MEDS ORDERED: CHLO TOPICAL (10:11)
[2017-08-26] MEDS ORDERED: Benztropine PO (10:11)
[2017-08-26] MEDS ORDERED: RISPM2 PO (10:11)
[2017-08-26] MEDS ORDERED: PERI PO (10:11)
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
== END 2017-08-26 13:25 | disposition home or self-care (01) | DRG 885 ==
LOC: NEPD 10:52 → NEDA 08-01 07:12 → H270 08-01 10:15 → H4EA 08-04 06:00 → H260 08-09 15:00 → H270 08-09 20:00 → H260 08-17 08:10
PROVIDERS: ADMIT Psychiatry & Neurology Psychiatry; ATTEND Psychiatry & Neurology Psychiatry
DX: F20.0 Paranoid schizophrenia (principal); D72.828 Other elevated white blood cell count; F17.290 Nicotine dependence, other tobacco product, uncomplicated; F19.10 Other psychoactive substance abuse, uncomplicated; R21 Rash and other nonspecific skin eruption; K59.00 Constipation, unspecified; Z23 Encounter for immunization; Z86.14 Personal history of Methicillin resistant Staphylococcus aureus infection
CPT/HCPCS: 71045; 74018; 80048; 80053; 80061; 80307; 81001; 82550; 83036; 83540; 84443; 85025; 87081; 87804; 90686; 90732; 93005; 99285; J1200; J2060; J2794; Q0163; Q2038